=== PATIENT | female | born 1945 | race Caucasian/White ===

== ENCOUNTER 2017-01-17 16:35 | Emergency (ER) | payer MEDICARE ==
--- NOTE | 2017-01-17 18:02 | ERPHSYRPT ---
- History of Present Illness Time Seen by Provider: 01/17/17 17:52 Source: patient Exam Limitations: no limitations Patient Subjective Stated Complaint: pt here for pain to right leg from groin to calf since sunday, pain is more intense at time. no injury noted to leg Triage Nursing Assessment: pt alert, resp easy. skin w/d, moves all ext well, has bruise to right mosqueda area, not redness for swelling noted Physician History: This is a 71-year-old white female she arrives with complaint of a pain in her right thigh which radiates down to her right lateral calf symptoms beginning Sunday 3 days ago which lasted about an hour but now has recurred and patient has been having pain in the right thigh and right leg sometimes severe since 11: 00 today. Patient denies any injury she states she feels sore in the muscle itself along the medial right thigh and along the right medial calf. Past medical history on this patient includes hypothyroidism high blood pressure and Lyme disease past surgical history includes hernia hysterectomy and Social history patient denies tobacco alcohol or illicit drug use Method of Injury: unknown (patient denies injury) Occurred: other (patient's Sunday with symptoms which recurred today) Severity of Pain-Max: moderate Severity of Pain-Current: mild Lower Extremities Pain: leg: right, thigh: right Modifying Factors: Improves With: nothing Associated Symptoms: other (pain in right medial thigh and leg worse with movement) Allergies/Adverse Reactions: cephalexin monohydrate [From Keflex] Allergy (Verified 01/17/17 17:29) Hives erythromycin base [Erythromycin Base] Allergy (Verified 01/17/17 17:29) Hives Home Medications: Levothyroxine Sodium 50 Mcg [Synthroid 50 Mcg] 25 mcg DAILY 03/13/13 [ History] Lisinopril [Zestril] 10 mg BID 01/17/17 [History] Hx Tetanus, Diphtheria Vaccination/Date Given: No Hx Influenza Vaccination/Date Given: No Hx Pneumococcal Vaccination/Date Given: Yes - Review of Systems Constitutional: No Fever, No Chills Eyes: No Symptoms Ears, Nose, & Throat: No Symptoms Respiratory: No Cough, No Dyspnea Cardiac: No Chest Pain, No Edema, No Syncope Abdominal/Gastrointestinal: No Abdominal Pain, No Nausea, No Vomiting, No Diarrhea Genitourinary Symptoms: No Dysuria Musculoskeletal: Other (Pain right medial leg and thigh) Skin: No Rash Neurological: No Dizziness, No Focal Weakness, No Sensory Changes Psychological: No Symptoms Endocrine: No Symptoms All Other Systems: Reviewed and Negative - Past Medical History Pertinent Past Medical History: Yes Cardiac History: Hypertension Endocrine Medical History: Hypothyroidism Other Medical History: LYMES DISEASE 2005 - Past Surgical History Past Surgical History: Yes Gastrointestinal: Hernia Repair Female Surgical History: Section, Hysterectomy - Social History Smoking Status: Never smoker Exposure to second hand smoke: No Drug Use: none Patient Lives Alone: No - Female History Hx Last Menstrual Period: post Hx Now: Yes - Nursing Vital Signs Nursing Vital Signs: Initial Vital Signs Temperature 98.0 F Temperature Source Oral Pulse Rate 73 Respiratory Rate 16 Blood Pressure [Right Arm] 141/86 Pain Intensity 8 - Physical Exam General Appearance: mild distress Eyes, Ears, Nose, Throat Exam: moist mucous membranes Neck Exam: non-tender, supple Cardiovascular/Respiratory Exam: chest non-tender, normal breath sounds, regular rate/rhythm, no respiratory distress Gastrointestinal/Abdominal Exam: non-tender, guarding Back Exam: normal inspection, No vertebral tenderness Hips Exam: bilateral: non-tender, normal inspection, normal range of motion, no evidence of injury (Will order) Legs Exam: right leg: other (tender with palpation right thigh and right medial leg), left leg: non-tender, normal inspection, bilateral leg: normal range of motion, no evidence of injury Knees Exam: bilateral knee: non-tender, normal inspection, normal range of motion, no evidence of injury Ankle Exam: bilateral ankle: non-tender, normal inspection, normal range of motion, no evidence of injury Foot Exam: bilateral foot: non-tender, normal inspection, normal range of motion , no evidence of injury DTR - Lower Extremities Exam: ankle (R): 2+, ankle (L): 2+ Neuro/Tendon Exam: normal sensation, normal motor functions Mental Status Exam: alert, oriented x 3, cooperative Skin Exam: normal color, warm, dry SpO2 Interpretation: normal (97%) SpO2: 97 Oxygen Delivery: Room Air - Course Nursing assessment & vital signs reviewed: Yes - Radiology Ultrasound Exam Venous Lower Extremity Ultrasound: Other (venous Doppler right lower extremity per police crime scene technician: no evidence of venous thrombosisrombosis) Ordered Tests: Active Orders 24 hr Category Date Time Status EKG-ER Only STAT Care 01/17/17 17:56 Active VENOUS UNILAT/LIMITED EXTREMIT [US] Stat Exams 01/17/17 17:57 Ordered CBC W DIFF Stat Lab 01/17/17 18:28 Completed CMP Stat Lab 01/17/17 18:28 Completed D-DIMER QUANTITATION Stat Lab 01/17/17 18:28 Completed Lab/Rad Data: Laboratory Result Diagrams 01/17/17 18:28 01/17/17 18:28 Laboratory Results 01/17/17 01/17/17 01/17/17 Range/Units 18:28 18:28 18:28 WBC 6.7 (4.0-10.5) K/mm3 RBC 3.70 L (4.1-5.4) M/mm3 Hgb 11.8 L (12.0-16.0) gm/dl Hct 35.4 (35-47) % MCV 95.7 (78-100) fl MCH 31.8 (26-32) pg MCHC 33.3 (32-36) g/dl RDW 13.0 (11.5-14.0) % Plt Count 303 (150-450) K/mm3 MPV 9.2 (6-9.5) fl Gran % 47.3 (36.0-66.0) % Lymphocytes % 37.1 (24.0-44.0) % Monocytes % 9.3 (0.0-12.0) % Eosinophils % 5.7 H (0.00-5.0) % Basophils % 0.6 (0.0-0.4) % Basophils # 0.04 (0-0.4) D-Dimer 352.56 (0.00-500.00) ng/mL Sodium 141 (136-145) mEq/L Potassium 4.0 (3.5-5.1) mEq/L Chloride 105 (98-107) mEq/L Carbon Dioxide 27.5 (21-32) mEq/L Anion Gap 12.8 (5-15) MEQ/L BUN 16 (9-20) mg/dL Creatinine 0.87 (0.55-1.30) mg/dl Estimated GFR > 60 ML/MIN Glucose 105 (70-110) MG/DL Calcium 9.0 (8.5-10.1) mg/dL Total Bilirubin 0.20 (0.2-1.0) mg/dL AST 17 (15-37) U/L ALT 14 (12-78) U/L Alkaline Phosphatase 79 (46-116) U/L Serum Total Protein 6.9 (6.4-8.2) gm/dL Albumin 3.3 L (3.4-5.0) g/dL - Progress Progress: improved Progress Note: 01/17/17 19:13 Patient's CBC CMP d-dimer all negative. Patient's venous Doppler right lower extremity negative for DVT. Patient feeling better patient does not want pain medications to go home she states she will take Tylenol and possibly Advil. And follow-up with Dr. Atwood. 01/17/17 19:14 Patient was offered pain medication in the emergency room she did not want any. - Departure Time of Disposition: 19:15 Departure Disposition: Home Clinical Impression: Right leg pain, Right thigh pain, Musculoskeletal strain Condition: Fair Critical Care Time: No Additional Instructions: Return home. Follow-up with your family doctor. Tylenol every 4 hours as needed for pain. Or Advil every 6 hours as needed for pain. Return for acute distress or for severe symptoms.
[2017-01-17 18:10] VITALS: BP 141/86; PULSE 73
[2017-01-17 18:28] LABS: BASOPHIL % 0.6 % (0.0-0.4); Eosinophil % 5.7 % (0.00-5.0); Granulocytes % 47.3 % (36.0-66.0); Lymphocytes % 37.1 % (24.0-44.0); Mean Cell Volume 95.7 fl (78-100); Mean Platelet Volume 9.2 fl (6-9.5); Monocytes % 9.3 % (0.0-12.0); Platelet Count 303 K/mm3 (150-450); White Blood Count 6.7 K/mm3 (4.0-10.5)
[2017-01-17 18:29] LABS: Mean Corpuscular Hemoglobin 31.8 pg (26-32)
[2017-01-17 18:51] LABS: ALBUMIN 3.3 g/dL (3.4-5.0); ALKALINE PHOSPHATASE 79 U/L (46-116); ANION GAP 12.8 MEQ/L (5-15); BLOOD UREA NITROGEN 16 mg/dL (9-20); CHLORIDE 105 mEq/L (98-107); Carbon Dioxide 27.5 mEq/L (21-32); Glucose 105 MG/DL (70-110); SGOT/AST 17 U/L (15-37); SGPT/ALT 14 U/L (12-78); SODIUM 141 mEq/L (136-145); Total Protein 6.9 gm/dL (6.4-8.2)
[2017-01-17 19:16] VITALS: O2SAT 97
--- NOTE | 2017-01-17 22:59 | XRAY ---
Exam: Right lower extremity duplex Doppler venous ultrasound exam from 01/17/2017. Comparison: None. Indication: Pain within right thigh and calf. Findings: Bailing Machine Operator sections of the right common femoral vein, proximal, mid, and distal superficial femoral vein, popliteal vein, and distal posterior tibial veins reveal normal Doppler signal, color flow, and transducer compression. In addition, normal color flow and Doppler signal is seen within the proximal greater saphenous vein and profundofemoral vein. Incidentally, a posterior popliteal cyst is seen measuring 2.6 cm in length, 2.2 cm in AP depth, and 2.6 cm in width. This may be the etiology of the patient's pain. Impression: 1. No findings of deep venous thrombosis are seen within the right lower extremity. No evidence of superficial venous thrombosis is seen within the greater saphenous vein in the proximal right thigh. 2. A posterior popliteal cyst is seen, as discussed above.
== END 2017-01-17 19:35 | disposition home or self-care (01) ==
LOC: ED 16:35
DX: M79.661 Pain in right lower leg (principal); M79.651 Pain in right thigh; T14.8 Other injury of unspecified body region; E03.9 Hypothyroidism, unspecified; I10 Essential (primary) hypertension
CPT/HCPCS: 36415; 80053; 85025; 85379; 93971; 99281; 99284

== ENCOUNTER 2021-02-03 05:20 | Emergency (ER) | payer MEDICARE ==
[2021-02-03] MEDS ORDERED: Pepcid 20 MG VIAL IV ONE ×2 (05:49→06:38)
[2021-02-03] MEDS ORDERED: BENADRYL 50 MG/ML IV ONE (05:49)
[2021-02-03] MEDS ORDERED: solu-MEDROL IV ONE (05:49)
[2021-02-03 06:29] VITALS: O2SAT 98
[2021-02-03] MEDS ORDERED: BENADRYL 50 MG/ML ONE (06:37)
[2021-02-03] MEDS ORDERED: solu-MEDROL ONE (06:39)
--- NOTE | 2021-02-03 06:50 | ERPHSYRPT ---
- History of Present Illness Source: patient Exam Limitations: no limitations Patient Subjective Stated Complaint: . Triage Nursing Assessment: . Timing/Duration: today Severity: moderate Modifying Factors: Improves With: nothing Associated Symptoms: other (generalized warmth, lip swelling) Hx Tetanus, Diphtheria Vaccination/Date Given: Yes Hx Influenza Vaccination/Date Given: No Hx Pneumococcal Vaccination/Date Given: Yes (unknown) Immunizations Up to Date: Yes - History of Present Illness Time Seen by Provider: 02/03/21 05:45 Physician History: Patient is a 75-year-old female presents to emergency department for evaluation of allergic reaction. Patient states she has a history of multiple antibiotic allergies. Patient states that she was recently started on Augmentin for a cat scratch to her right lower leg. At approximately 430 this morning patient awoke feeling hot sweaty and shaky. Patient states her heart was racing and she felt her lip swelling. Patient became concerned and presented to our ED. Upon arrival patient was slightly hypertensive. She was anxious. No chest pain. Mi ld nausea. Patient symptoms are constant. No abdominal cramping. No throat fullness. No intraoral lesions. No pruritic rash. Patient voices no other complaints or concerns. (BLANE MENA) Allergies/Adverse Reactions: amoxicillin [From Augmentin] Allergy (Intermediate, Verified 02/03/21 05:50) Swelling of Tongue and Lips clavulanic acid [From Augmentin] Allergy (Intermediate, Verified 02/03/21 05:50) Swelling of Tongue and Lips cephalexin monohydrate [From Keflex] Allergy (Verified 01/17/17 17:29) Hives erythromycin base [Erythromycin Base] Allergy (Verified 01/17/17 17:29) Hives Home Medications: Levothyroxine Sodium 50 Mcg [Synthroid 50 Mcg] 25 mcg PO DAILY 03/13/13 [History] Cephalexin Monohydrate [Cephalexin] 500 mg PO TID 02/03/21 [History] Losartan Potassium 50 mg [Cozaar 50 MG] 50 mg PO BID 02/03/21 [History] Smz/Tmp Ds Tablet [Bactrim Ds Tablet] 800 mg PO BID 02/03/21 [History] Travel Risk - International Travel Have you traveled outside of the country in past 3 weeks: No - Coronavirus Screening Are you exhibiting any of the following symptoms?: No Close contact with a COVID-19 positive Pt in past 14-21 Days: No - Vaccine Status Have you recieved a Covid-19 vaccination: No - Review of Systems Constitutional: No Symptoms, No Fever, No Chills Eyes: No Symptoms Ears, Nose, & Throat: No Symptoms Respiratory: No Symptoms, No Cough, No Dyspnea Cardiac: No Symptoms, No Chest Pain, No Edema, No Syncope Abdominal/Gastrointestinal: No Symptoms, No Abdominal Pain, No Nausea, No Vomiting, No Diarrhea Genitourinary Symptoms: No Symptoms, No Dysuria Musculoskeletal: No Symptoms, No Back Pain, No Neck Pain Skin: No Symptoms, No Rash Neurological: No Symptoms, No Dizziness, No Focal Weakness, No Sensory Changes Psychological: No Symptoms Endocrine: No Symptoms Hematologic/Lymphatic: No Symptoms All Other Systems: Reviewed and Negative - Past Medical History Pertinent Past Medical History: Yes Cardiac History: Hypertension Endocrine Medical History: Hypothyroidism Musculoskeletal History: Arthritis Other Medical History: LYME DISEASE - Past Surgical History Past Surgical History: Yes Gastrointestinal: Hernia Repair Female Surgical History: Section, Hysterectomy Other Surgical History: July 2019- bladder repair - Social History Smoking Status: Never smoker Exposure to second hand smoke: No Drug Use: none Patient Lives Alone: No - Physical Exam General Appearance: no apparent distress, alert, other (lip swelling ) Eye Exam: PERRL/EOMI, eyes nml inspection Ears, Nose, Throat Exam: normal ENT inspection, TMs normal, pharynx normal, moist mucous membranes Neck Exam: normal inspection, non-tender, supple, full range of motion Respiratory Exam: normal breath sounds, lungs clear, No respiratory distress Cardiovascular Exam: regular rate/rhythm, normal heart sounds, normal peripheral pulses Gastrointestinal/Abdomen Exam: soft, normal bowel sounds, No tenderness, No mass Back Exam: normal inspection, normal range of motion, No CVA tenderness, No vertebral tenderness Extremity Exam: normal inspection, normal range of motion, pelvis stable Neurologic Exam: alert, oriented x 3, cooperative, normal mood/affect, nml cerebellar function, nml station & gait, sensation nml, No motor deficits Skin Exam: normal color, warm, dry, No rash Lymphatic Exam: No adenopathy SpO2 Interpretation: normal SpO2: 98 O2 Delivery: Room Air - Nursing Vital Signs Nursing Vital Signs: Initial Vital Signs Temperature 96.9 F 02/03/21 05:38 Pulse Rate 86 07/08/21 05:38 Respiratory Rate 18 02/03/21 05:38 Blood Pressure 199/93 02/03/21 05:38 O2 Sat by Pulse Oximetry 99 02/03/21 05:38 Pain Scale Pain Intensity 0 - Course Nursing assessment & vital signs reviewed: Yes EKG Interpreted by Me: RATE (70), Sinus Rhythm, NORMAL AXIS, NORMAL INTERVALS Ordered Tests: Active Orders 24 hr Category Date Time Status Gate Agent STAT Care 02/03/21 07:12 Active EKG-ER Only STAT Care 02/03/21 07:15 Active IV Insertion STAT Care 02/03/21 05:49 Active CBC W DIFF Stat Lab 02/03/21 06:30 Completed CMP Stat Lab 02/03/21 06:30 Completed TROPONIN Q3H Lab 02/03/21 06:30 Completed TROPONIN Q3H Lab 02/03/21 10:15 Ordered TROPONIN Q3H Lab 02/03/21 13:15 Ordered TROPONIN Q3H Lab 02/03/21 16:15 Ordered TROPONIN Q3H Lab 02/03/21 19:15 Ordered UA W/RFX UR CULTURE Stat Lab 02/03/21 06:30 Completed Medication Summary Discontinued Medications Generic Name Dose Route Start Last Admin Trade Name Freq PRN Reason Stop Dose Admin Diphenhydramine HCl 25 mg 02/03/21 05:49 02/03/21 06:57 Benadryl 50 Mg/Ml IV 02/03/21 05:50 25 mg STAT ONE Administration Diphenhydramine HCl Confirm 02/03/21 06:37 Benadryl 50 Mg/Ml Administered 02/03/21 06:38 Dose 50 mg .ROUTE .STK-MED ONE Famotidine 20 mg 02/03/21 05:49 02/03/21 06:57 Pepcid 20 Mg Vial IV 02/03/21 05:50 20 mg STAT ONE Administration Famotidine Confirm 02/03/21 06:38 Pepcid 20 Mg Vial Administered 02/03/21 06:39 Dose 20 mg IV .STK-MED ONE Losartan Potassium 50 mg 02/03/21 07:22 02/03/21 07:33 Cozaar 50 Mg PO 02/03/21 07:23 50 mg ONCE STA Administration Methylprednisolone Sodium Succinate 125 mg 02/03/21 05:49 02/03/21 06:57 Solu-Medrol 125 Mg IV 02/03/21 05:50 125 mg STAT ONE Administration Methylprednisolone Sodium Succinate Confirm 02/03/21 06:39 Solu-Medrol 125 Mg Administered 02/03/21 06:40 Dose 125 mg .ROUTE .STK-MED ONE Lab/Rad Data: Laboratory Result Diagrams 02/03/21 06:30 02/03/21 06:30 Laboratory Results 02/03/21 02/03/21 02/03/21 Range/Units 06:30 06:30 06:30 WBC 6.7 (4.0-10.5) K/mm3 RBC 3.96 L (4.1-5.4) M/mm3 Hgb 12.1 (12.0-16.0) gm/dl Hct 36.8 (35-47) % MCV 92.9 (78-100) fl MCH 30.6 (26-32) pg MCHC 32.9 (32-36) g/dl RDW 13.4 (11.5-14.0) % Plt Count 347 (150-450) K/mm3 MPV 9.2 (7.5-11.0) fl Gran % 59.3 (36.0-66.0) % Eos # (Auto) 0.18 (0-0.5) Absolute Lymphs (auto) 2.01 (1.0-4.6) Absolute Monos (auto) 0.48 (0.0-1.3) Lymphocytes % 30.2 (24.0-44.0) % Monocytes % 7.2 (0.0-12.0) % Eosinophils % 2.7 (0.00-5.0) % Basophils % 0.6 (0.0-0.4) % Absolute Granulocytes 3.95 (1.4-6.9) Basophils # 0.04 (0-0.4) Sodium 134 L (137-145) mmol/L Potassium 4.6 (3.5-5.1) mmol/L Chloride 100 (98-107) mmol/L Carbon Dioxide 22 (22-30) mmol/L Anion Gap 15.8 H (5-15) MEQ/L BUN 21 H (7-17) mg/dL Creatinine 0.90 (0.52-1.04) mg/dL Estimated GFR > 60.0 ML/MIN Glucose 107 H (74-106) mg/dL Calcium 9.1 (8.4-10.2) mg/dL Total Bilirubin 0.20 (0.2-1.3) mg/dL AST 29 (14-36) U/L ALT 17 (0-35) U/L Alkaline Phosphatase 92 (38-126) U/L Troponin I < 0.012 (0.000-0.034) ng/mL Serum Total Protein 7.3 (6.3-8.2) g/dL Albumin 4.4 (3.5-5.0) g/dL Urine Color (YELLOW) Urine Appearance (CLEAR) Urine pH (5-6) Ur Specific Sawyer (1.005-1.025) Urine Protein (Negative) Urine Ketones (NEGATIVE) Urine Blood (0-5) Cesar/ul Urine Nitrite (NEGATIVE) Urine Bilirubin (NEGATIVE) Urine Urobilinogen (0-1) mg/dL Ur Leukocyte Esterase (NEGATIVE) Urine WBC (Auto) (0-5) /HPF Urine RBC (Auto) (0-2) /HPF U Epithel Cells (Auto) (FEW) /HPF Urine Bacteria (Auto) (NEGATIVE) /HPF Urine Culture Reflexed (NO) Urine Glucose (NEGATIVE) mg/dL 02/03/21 Range/Units 06:30 WBC (4.0-10.5) K/mm3 RBC (4.1-5.4) M/mm3 Hgb (12.0-16.0) gm/dl Hct (35-47) % MCV (78-100) fl MCH (26-32) pg MCHC (32-36) g/dl RDW (11.5-14.0) % Plt Count (150-450) K/mm3 MPV (7.5-11.0) fl Gran % (36.0-66.0) % Eos # (Auto) (0-0.5) Absolute Lymphs (auto) (1.0-4.6) Absolute Monos (auto) (0.0-1.3) Lymphocytes % (24.0-44.0) % Monocytes % (0.0-12.0) % Eosinophils % (0.00-5.0) % Basophils % (0.0-0.4) % Absolute Granulocytes (1.4-6.9) Basophils # (0-0.4) Sodium (137-145) mmol/L Potassium (3.5-5.1) mmol/L Chloride (98-107) mmol/L Carbon Dioxide (22-30) mmol/L Anion Gap (5-15) MEQ/L BUN (7-17) mg/dL Creatinine (0.52-1.04) mg/dL Estimated GFR ML/MIN Glucose (74-106) mg/dL Calcium (8.4-10.2) mg/dL Total Bilirubin (0.2-1.3) mg/dL AST (14-36) U/L ALT (0-35) U/L Alkaline Phosphatase (38-126) U/L Troponin I (0.000-0.034) ng/mL Serum Total Protein (6.3-8.2) g/dL Albumin (3.5-5.0) g/dL Urine Color STRAW (YELLOW) Urine Appearance CLEAR (CLEAR) Urine pH 6.0 (5-6) Ur Specific Sawyer 1.006 (1.005-1.025) Urine Protein NEGATIVE (Negative) Urine Ketones NEGATIVE (NEGATIVE) Urine Blood NEGATIVE (0-5) Cesar/ul Urine Nitrite NEGATIVE (NEGATIVE) Urine Bilirubin NEGATIVE (NEGATIVE) Urine Urobilinogen NEGATIVE (0-1) mg/dL Ur Leukocyte Esterase NEGATIVE (NEGATIVE) Urine WBC (Auto) NONE (0-5) /HPF Urine RBC (Auto) NONE (0-2) /HPF U Epithel Cells (Auto) NONE (FEW) /HPF Urine Bacteria (Auto) NONE (NEGATIVE) /HPF Urine Culture Reflexed NO (NO) Urine Glucose NEGATIVE (NEGATIVE) mg/dL - Progress Progress: improved Counseled pt/family regarding: lab results, diagnosis, need for follow-up - Progress Progress Note: Patient reassessed. Symptoms improved. Patient blood pressure remains somewhat elevated. Systolic blood pressure is 180. Patient is due for her losartan this morning. Losartan 50 mg p.o. x1 will be administered to patient for blood pressure control at this time. Because of her elevated blood pressure and EKG was ordered. EKG is normal sinus rhythm. UA negative for UTI. Labs including troponin were also ordered. Results pending. We will observe patient in the ED for a longer period of time. Patient endorsed to final disposition. 02/03/21 07:23 (BLANE MENA) Patient is checked out to me at shift change from Dr. Mena with pending chemistries/troponins and recheck of blood pressure off. She was given antihypertensive while in the ER. Recheck blood pressure is 160/80. Patient denies any chest pain palpitations or shortness of breath. Denies any headache or visual disturbance. No abdominal pain nausea. Has negative troponins. As per Dr. Mena recommendation patient would be discharged after first troponin and will be given EpiPen/Pepcid/Benadryl/prednisone to go home. She is advised to monitor her blood pressure regularly, keep a log and follow-up with primary care. Discussed signs symptoms of anaphylactic reaction needing to use EpiPen and returning to ER which she seems understanding. Stable for discharge. 02/03/21 08:17 (KATHERINE MEANS) - Departure Departure Disposition: Home Critical Care Time: No - Departure Clinical Impression: Allergic reaction Qualifiers: Encounter type: initial encounter Qualified Code(s): T78.40XA - Allergy, unspecified, initial encounter Hypertension Qualifiers: Hypertension type: unspecified Qualified Code(s): I10 - Essential (primary) hypertension Condition: Stable Referrals: PATRICA AGUILAR MD [Primary Care Provider] - (1-2 days for reevaluation) Instructions: Adverse Drug Reactions, Adult (DC), Anaphylaxis (DC) Additional Instructions: Monitor your blood pressure regularly, keep a log and follow-up with PCP. Use EpiPen as needed for anaphylactic reaction. Return to ER for any worsening of breathing, throat closing sensation, generalized weakness fatigue intractable headache, uncontrolled hypertension etc. Prescriptions: Diphenhydramine HCl 25 mg [Benadryl 25 mg Capsule] 25 mg PO Q4H PRN PRN #20 capsule PRN Reason: Allergies Prednisone 20 mg [Deltasone 20 mg] 60 mg PO DAILY 5 Days #15 tablet Epinephrine [Epipen] 0.3 mg IM DIRECTIONS UNKNOWN 1 Days #0.3 ml Famotidine 20 mg [Pepcid 20 MG] 20 mg PO BID #10 tablet Albuterol 8 gm Mdi Hfa [Ventolin Hfa MDI] 8 gm IH Q4H #1 [email or web address]
[2021-02-03 07:04] LABS: Appearance CLEAR (CLEAR); Bilirubin NEGATIVE (NEGATIVE); Blood NEGATIVE Ery/ul (0-5); Glucose NEGATIVE (NEGATIVE); Ketones NEGATIVE (NEGATIVE); Leukocyte Esterase NEGATIVE (NEGATIVE); Nitrite NEGATIVE (NEGATIVE); Protein,Urine Dip NEGATIVE (Negative); Specific Gravity 1.006 (1.005-1.025); Urobilinogen NEGATIVE mg/dL (0-1)
[2021-02-03 07:17] LABS: Absolute Neutrophil Ct (ANC) 3.95 (1.4-6.9); BASOPHIL % 0.6 % (0.0-0.4); Basophil (Absolute #) 0.04 (0-0.4); Eosinophil % 2.7 % (0.00-5.0); Eosinophil (Absolute #) 0.18 (0-0.5); Hematocrit 36.8 % (35-47); Hemoglobin 12.1 gm/dl (12.0-16.0); Lymphocyte (Absolute #) 2.01 (1.0-4.6); Lymphocytes % 30.2 % (24.0-44.0); Mean Cell Volume 92.9 fl (78-100); Mean Corpuscular Hemoglobin 30.6 pg (26-32); Mean Corpuscular Hgb Concent. 32.9 g/dl (32-36); Mean Platelet Volume 9.2 fl (7.5-11.0); Monocyte (Absolute #) 0.48 (0.0-1.3); Monocytes % 7.2 % (0.0-12.0); Neutrophil % 59.3 % (36.0-66.0); Platelet Count 347 K/mm3 (150-450); Red Blood Count 3.96 M/mm3 (4.1-5.4); Red Cell Distribution Width 13.4 % (11.5-14.0); White Blood Count 6.7 K/mm3 (4.0-10.5)
[2021-02-03] MEDS ORDERED: Cozaar 50 MG PO STA (07:22)
[2021-02-03 07:37] VITALS: BP 182/90; PULSE 76
[2021-02-03 07:41] LABS: ALBUMIN 4.4 g/dL (3.5-5.0); ALKALINE PHOSPHATASE 92 U/L (38-126); ANION GAP 15.8 MEQ/L (5-15); BLOOD UREA NITROGEN 21 mg/dL (7-17); CHLORIDE 100 mmol/L (98-107); Calcium 9.1 mg/dL (8.4-10.2); Carbon Dioxide 22 mmol/L (22-30); EST GLOMERULAR FILTRATION RATE > 60.0 ML/MIN; Glucose 107 mg/dL (74-106); Potassium 4.6 mmol/L (3.5-5.1); SGOT/AST 29 U/L (14-36); SGPT/ALT 17 U/L (0-35); SODIUM 134 mmol/L (137-145); Total Protein 7.3 g/dL (6.3-8.2)
== END 2021-02-03 08:47 | disposition home or self-care (01) ==
LOC: ED 05:20
DX: T78.40XA Allergy, unspecified, initial encounter (principal); I10 Essential (primary) hypertension; E03.9 Hypothyroidism, unspecified; Z79.899 Other long term (current) drug therapy
CPT/HCPCS: 36000; 36415; 80053; 81001; 84484; 85025; 93005; 93041; 96374; 96375; 99284; J1200; J2930; A9270-GY

== ENCOUNTER 2021-02-07 03:26 | Emergency (ER) | payer MEDICARE ==
[2021-02-07] MEDS ORDERED: BENADRYL 50 MG/ML IV ONE (03:54)
[2021-02-07] MEDS ORDERED: DUONEB 0.5-3 MG/3 ml Neb IH ONE ×2 (03:54→04:02)
[2021-02-07] MEDS ORDERED: solu-MEDROL 125 MG, Sterile H2O 10 ml 2 ML IV ONE ×2 (03:54)
[2021-02-07] MEDS ORDERED: Pepcid 20 MG VIAL IV ONE ×2 (03:54→04:15)
[2021-02-07 04:13] VITALS: O2SAT 98
[2021-02-07] MEDS ORDERED: BENADRYL 50 MG/ML ONE (04:14)
[2021-02-07] MEDS ORDERED: solu-MEDROL ONE (04:15)
[2021-02-07] MEDS ORDERED: Sterile H2O 10 ml IJ ONE (04:15)
--- NOTE | 2021-02-07 06:05 | ERPHSYRPT ---
- History of Present Illness Time Seen by Provider: 02/07/21 05:54 Source: patient Exam Limitations: no limitations Patient Subjective Stated Complaint: "I'm having swelling in my tongue." Triage Nursing Assessment: patient reported having an allergic reaction to her moxifloxacin/ She described a swelling in her throat and difficulty swallowing. Oral mucosa pink and moist with slight edema. Trachea midline without stridor. Lungs vesicular without adventitious sounds. skin without rashes or lesions. Physician History: 75 years old female with history of allergic reactions to multiple antibiotics lately presented in the ER with tongue swelling and throat closing sensation waking her up from sleep around 2 AM today. Patient reports having some difficulty swallowing. No difficulty breathing yet. Does report having similar symptoms last week with a different antibiotics. Patient has been switched to multiple antibiotics for cat scratch on the right leg. Since she woke up around 2 AM tongue swelling is gradually improving. Timing/Duration: hour(s) (1), sudden, improved Severity: moderate Modifying Factors: Improves With: nothing Associated Symptoms: No shortness of breath Allergies/Adverse Reactions: amoxicillin [From Augmentin] Allergy (Intermediate, Verified 02/03/21 05:50) Swelling of Tongue and Lips clavulanic acid [From Augmentin] Allergy (Intermediate, Verified 02/03/21 05:50) Swelling of Tongue and Lips moxifloxacin Allergy (Intermediate, Verified 02/07/21 03:33) tongue swelling and dysphagia cephalexin monohydrate [From Keflex] Allergy (Verified 01/17/17 17:29) Hives erythromycin base [Erythromycin Base] Allergy (Verified 01/17/17 17:29) Hives minocycline Adverse Reaction (Intermediate, Verified 02/07/21 03:33) dizziness Home Medications: Levothyroxine Sodium 50 Mcg [Synthroid 50 Mcg] 25 mcg PO DAILY 03/13/13 [History] Losartan Potassium 50 mg [Cozaar 50 MG] 50 mg PO BID 02/03/21 [History] Hx Tetanus, Diphtheria Vaccination/Date Given: Yes Hx Influenza Vaccination/Date Given: No Hx Pneumococcal Vaccination/Date Given: Yes (unknown) Travel Risk - International Travel Have you traveled outside of the country in past 3 weeks: No - Coronavirus Screening Are you exhibiting any of the following symptoms?: No Close contact with a COVID-19 positive Pt in past 14-21 Days: No - Vaccine Status Have you recieved a Covid-19 vaccination: No - Review of Systems Constitutional: No Symptoms Eyes: No Symptoms Ears, Nose, & Throat: Mouth Swelling, Throat Swelling Respiratory: No Symptoms Cardiac: No Symptoms Abdominal/Gastrointestinal: No Symptoms, Appetite Changes Musculoskeletal: No Symptoms Skin: Skin Lesions Neurological: No Symptoms Psychological: Anxiety Endocrine: No Symptoms Hematologic/Lymphatic: No Symptoms Immunological/Allergic: No Symptoms - Past Medical History Pertinent Past Medical History: Yes Cardiac History: Hypertension Endocrine Medical History: Hypothyroidism Musculoskeletal History: Arthritis Other Medical History: LYME DISEASE - Past Surgical History Past Surgical History: Yes Gastrointestinal: Hernia Repair Female Surgical History: Section, Hysterectomy Other Surgical History: July 2019- bladder repair - Social History Smoking Status: Never smoker Exposure to second hand smoke: No Drug Use: none Patient Lives Alone: No - Female History Hx Now: No - Nursing Vital Signs Nursing Vital Signs: Initial Vital Signs Temperature 97.4 F 02/07/21 03:26 Pulse Rate 80 02/07/21 03:26 Respiratory Rate 18 02/07/21 03:26 Blood Pressure 202/97 02/07/21 03:26 O2 Sat by Pulse Oximetry 99 02/07/21 03:26 Pain Scale Pain Intensity 0 - Physical Exam General Appearance: no apparent distress, alert Eye Exam: PERRL/EOMI, eyes nml inspection Ears, Nose, Throat Exam: moist mucous membranes, pharyngeal erythema, other (Mild swelling of tongue. 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, normal mood/affect Skin Exam: normal color, rash (Right lower leg.) SpO2 Interpretation: normal SpO2: 98 O2 Delivery: Room Air Ordered Tests: Active Orders 24 hr Category Date Time Status Respiratory Therapy Assessment DAILY RT 02/07/21 04:07 Active Medication Summary Discontinued Medications Generic Name Dose Route Start Last Admin Trade Name Freq PRN Reason Stop Dose Admin Albuterol/Ipratropium 3 ml 02/07/21 03:54 02/07/21 04:04 Duoneb 0.5-3 Mg/3 Ml Neb IH 07/12/21 03:55 3 ml STAT ONE Administration Albuterol/Ipratropium Confirm 02/07/21 04:02 Duoneb 0.5-3 Mg/3 Ml Neb Administered 02/07/21 04:03 Dose 3 ml IH .STK-MED ONE Methylprednisolone Sodium 0 mg 02/07/21 03:54 02/07/21 04:19 Succinate 125 mg/ Sterile IV 02/07/21 03:55 125 mg Water 2 ml STAT ONE Administration Diphenhydramine HCl 25 mg 02/07/21 03:54 02/07/21 04:17 Benadryl 50 Mg/Ml IV 02/07/21 03:55 25 mg STAT ONE Administration Diphenhydramine HCl Confirm 02/07/21 04:14 Benadryl 50 Mg/Ml Administered 02/07/21 04:15 Dose 50 mg .ROUTE .STK-MED ONE Famotidine 20 mg 02/07/21 03:54 02/07/21 04:16 Pepcid 20 Mg Vial IV 02/07/21 03:55 20 mg STAT ONE Administration Famotidine Confirm 02/07/21 04:15 Pepcid 20 Mg Vial Administered 02/07/21 04:16 Dose 20 mg IV .STK-MED ONE Methylprednisolone Sodium Succinate Confirm 02/07/21 04:15 Solu-Medrol Administered 02/07/21 04:16 Dose 125 mg .ROUTE .STK-MED ONE Sterile Water Confirm 02/07/21 04:15 Sterile H2o 10 Ml Administered 02/07/21 04:16 Dose 10 ml IJ .STK-MED ONE - Progress Progress: improved, re-examined Progress Note: 02/07/21 06:03 She is given Solu-Medrol, Benadryl, Pepcid and neb treatment, observed for almost 3 hours and her symptoms are almost completely resolved. No difficulty breathing. Patient is being discharged with above medications to take at home and would not start her on any antibiotics for now. Discussed signs symptoms of worsening needing return to ER which she seems understanding. Counseled pt/family regarding: diagnosis, need for follow-up - Departure Departure Disposition: Home Clinical Impression: Allergic reaction Qualifiers: Encounter type: initial encounter Qualified Code(s): T78.40XA - Allergy, unspecified, initial encounter Condition: Stable Critical Care Time: No Referrals: PATRICA AGUILAR MD [Primary Care Provider] - (1-2 days for reevaluation) Instructions: Adverse Drug Reactions, Adult (DC) Additional Instructions: Follow-up with your primary care physician for reevaluation in 1 to 2 days. Use EpiPen as needed. Return to ER if again have throat closing sensation, tongue swelling, difficulty breathing etc. Prescriptions: Diphenhydramine HCl 25 mg [Benadryl 25 mg Capsule] 25 mg PO Q4H PRN PRN #20 capsule PRN Reason: Allergies Prednisone 20 mg [Deltasone 20 mg] 60 mg PO DAILY 5 Days #15 tablet Famotidine 20 mg [Pepcid 20 MG] 20 mg PO BID #10 tablet
[2021-02-07 06:48] VITALS: BP 160/90; PULSE 88
== END 2021-02-07 06:40 | disposition home or self-care (01) ==
LOC: ED 03:26
DX: T78.40XA Allergy, unspecified, initial encounter (principal); Z79.899 Other long term (current) drug therapy; I10 Essential (primary) hypertension; E03.9 Hypothyroidism, unspecified
CPT/HCPCS: 94640; 96374; 96375; 99284; J1200; J2930; A9270-GY

== ENCOUNTER 2023-12-05 12:01 | Observation (INO) | payer MEDICARE ==
--- NOTE | 2023-12-05 12:17 | ERPHSYRPT ---
- History of Present Illness Time Seen by Provider: 12/05/23 12:07 Source: patient Exam Limitations: no limitations Physician History: Pt states she tripped over her feet in her kitchen and fell 7 days ago hitting the back of her head. Pt went to [facility] ER in [place], [place] and had multiple x-rays done and a CT-head 5 days ago. Pt states she vomited once 5 days ago and mul tiple times in the past 4 hours without blood. Pt also states she has had diarrhea today without blood. Pt also c/o generalized weakness and dizziness(off balance) for the past 5 days. Pt denies fever. chest pain, shortness of air. Allergies/Adverse Reactions: amoxicillin [From Augmentin] Allergy (Intermediate, Verified 12/05/23 12:09) Swelling of Tongue and Lips clavulanic acid [From Augmentin] Allergy (Intermediate, Verified 12/05/23 12:09) Swelling of Tongue and Lips moxifloxacin Allergy (Intermediate, Verified 12/05/23 12:09) tongue swelling and dysphagia cephalexin monohydrate [From Keflex] Allergy (Verified 12/05/23 12:09) Hives erythromycin base [Erythromycin Base] Allergy (Verified 12/05/23 12:09) Hives minocycline Adverse Reaction (Intermediate, Verified 12/05/23 12:09) dizziness Home Medications: Amlodipine Besylate [Norvasc] 2.5 mg PO DAILY PRN 12/05/23 [History] Losartan Potassium 50 mg [Cozaar 50 MG] 50 mg PO BID 12/05/23 [History] Hx Tetanus, Diphtheria Vaccination/Date Given: Yes Hx Influenza Vaccination/Date Given: No Hx Pneumococcal Vaccination/Date Given: Yes (unknown) - Review of Systems Constitutional: No Fever Respiratory: No Dyspnea Cardiac: No Chest Pain Abdominal/Gastrointestinal: Vomiting, Diarrhea, No Abdominal Pain Genitourinary Symptoms: No Dysuria Neurological: Dizziness - Past Medical History Pertinent Past Medical History: Yes Neurological History: Peripheral Neuropathy Cardiac History: Hypertension Respiratory History: No Pertinent History Endocrine Medical History: Hypothyroidism Musculoskeletal History: Osteoarthritis Other Medical History: OSTEOPENIA, LYME DISEASE, NEUROPATHY. - Past Surgical History Past Surgical History: Yes Gastrointestinal: Hernia Repair Female Surgical History: Section, Hysterectomy Other Surgical History: July 2019- bladder repair - Social History Smoking Status: Never smoker Exposure to second hand smoke: No Drug Use: none Patient Lives Alone: No - Nursing Vital Signs Nursing Vital Signs: Initial Vital Signs Temperature 98.1 F 12/05/23 12:02 Pulse Rate 80 12/05/23 12:02 Respiratory Rate 17 12/05/23 12:02 Blood Pressure 184/102 12/05/23 12:02 O2 Sat by Pulse Oximetry 98 12/05/23 12:02 Pain Scale Pain Intensity 0 - Physical Exam General Appearance: alert Eye Exam: PERRL/EOMI Ears, Nose, Throat Exam: TMs normal, pharynx normal Neck Exam: normal inspection Respiratory Exam: normal breath sounds, airway intact Cardiovascular Exam: normal heart sounds Gastrointestinal/Abdomen Exam: soft, other (B.S. mildly hyperactive) Extremity Exam: No pedal edema Neurologic Exam: alert, cooperative, sensation nml, No motor deficits Skin Exam: warm, dry - Course EKG Interpreted by Me: RATE (78), Sinus Rhythm, Left [place] Deviation, Other (QTc = 462) - Radiology Exams Chest X-ray Interpretation: Discussed w/ radiologist (Continued nonacute hyperinflated chest with chronic features.) - CT Exams Abdomen/Pelvis CT Interpretation: Discussed w/radiologist (New gallbladder sludge/gravel. If there is clinical concern sonogram may yield further information. Again chronic findings including colonic diverticulosis, bilateral renal cysts, arteriosclerotic disease and chronic bony findings.) Ordered Tests: Active Orders 24 hr Category Date Time Status EKG-ER Only STAT Care 12/05/23 12:29 Active IV Insertion STAT Care 12/05/23 12:29 Active Oxygen-ED Only Nasal Cannula 2 lpm Care 12/05/23 17:38 Active ABDOMEN AND PELVIS W/0 CONTRAS [CT] Stat Exams 12/05/23 12:30 Completed CHEST 2 VIEWS (PA AND LAT) Stat Exams 12/05/23 12:[address] ANGIOGRAPHY NECK [CT] Stat Exams 12/05/23 18:51 Ordered CTA HEAD W AND/OR WO CONTRAST [CT] Stat Exams 12/05/23 18:50 Ordered MRI BRAIN W/O CONTRAST [MRI] Stat Exams 12/05/23 12:31 Completed AMYLASE Stat Lab 12/05/23 12:48 Completed CBC W DIFF Stat Lab 12/05/23 12:48 Completed CMP Stat Lab 12/05/23 12:48 Completed LIPASE Stat Lab 12/05/23 12:48 Completed Lactic Acid Stat Lab 12/05/23 12:42 Completed TROPONIN Q4H Lab 12/05/23 12:48 Completed TROPONIN Q4H Lab 12/05/23 16:18 Completed TROPONIN Q4H Lab 12/05/23 20:30 Ordered UA W/RFX UR CULTURE Stat Lab 12/05/23 13:51 Completed Medication Summary Generic Name Dose Route Start Last Admin Trade Name Neyda PRN Reason Stop Dose Admin Losartan Potassium 50 mg 12/06/23 18:02 12/05/23 18:14 Losartan Potassium 50 Mg Tablet PO 12/06/23 18:03 50 mg NOW ONE Administration Discontinued Medications Generic Name Dose Route Start Last Admin Trade Name Neyda PRN Reason Stop Dose Admin Aspirin 81 mg 12/05/23 18:45 Aspirin 81 Mg Tablet.Ec PO 12/05/23 18:46 1XONLY ONE Aspirin Confirm 12/05/23 18:55 Aspirin 81 Mg Tab.Chew Administered 12/05/23 18:56 Dose 81 mg .ROUTE .STK-MED ONE Sodium Chloride 1,000 mls @ 999 mls/hr 12/05/23 12:29 12/05/23 13:51 Sodium Chloride 0.9% 1000 Ml IV 12/05/23 13:29 Infused .Q1H1M STA Infusion Sodium Chloride Confirm 12/05/23 12:42 Sodium Chloride 0.9% 1000 Ml Administered 12/05/23 12:43 Dose 1,000 mls @ ud .ROUTE .STK-MED ONE Lorazepam 0.5 mg 12/05/23 13:58 12/05/23 14:18 Lorazepam 0.5 Mg Tablet PO 12/05/23 13:59 0.5 mg STAT ONE Administration Lorazepam Confirm 12/05/23 14:10 Lorazepam 1 Mg Tablet Administered 12/05/23 14:11 Dose 1 mg .ROUTE .STK-MED ONE Losartan Potassium Confirm 12/05/23 18:08 Losartan Potassium 50 Mg Tablet Administered 12/05/23 18:09 Dose 50 mg .ROUTE .STK-MED ONE Ondansetron HCl 4 mg 12/05/23 12:29 12/05/23 14:13 Ondansetron Hcl 4 Mg/2 Ml Vial IV 12/05/23 12:30 4 mg STAT ONE Administration Ondansetron HCl Confirm 12/05/23 12:41 Ondansetron Hcl 4 Mg/2 Ml Vial Administered 12/05/23 12:42 Dose 4 mg .ROUTE .STK-MED ONE Ondansetron HCl Confirm 12/05/23 14:10 Ondansetron Hcl 4 Mg/2 Ml Vial Administered 12/05/23 14:11 Dose 4 mg .ROUTE .STK-MED ONE Lab/Rad Data: Laboratory Result Diagrams 12/05/23 12:48 12/05/23 12:48 Laboratory Results 12/05/23 12/05/23 12/05/23 Range/Units 16:18 13:51 12:50 WBC (4.0-10.5) x10^3/uL RBC (4.1-5.4) x10^6/uL Hgb (12.0-16.0) g/dL Hct (35-47) % MCV (78-100) fL MCH (26-32) pg MCHC (32-36) g/dL RDW (11.5-14.0) % Plt Count (150-450) x10^3/uL MPV (7.5-11.0) fL Gran % (36.0-66.0) % Immature Gran % (Auto) (0.00-0.4) % Nucleat RBC Rel Count (0.00-0.1) % Eos # (Auto) (0-0.5) x10^3/uL Immature Gran # (Auto) (0.00-0.03) x10^3u/L Absolute Lymphs (auto) (1.0-4.6) x10^3/uL Absolute Monos (auto) (0.0-1.3) x10^3/uL Absolute Nucleated RBC (0.00-0.01) x10^3u/L Lymphocytes % (24.0-44.0) % Monocytes % (0.0-12.0) % Eosinophils % (0.00-5.0) % Basophils % (0.0-0.4) % Absolute Granulocytes (1.4-6.9) x10^3/uL Basophils # (0-0.4) x10^3/uL Sodium (135-145) mmol/L Potassium (3.5-5.1) mmol/L Chloride (98-107) mmol/L Carbon Dioxide (22-30) mmol/L Anion Gap (5-15) MEQ/L BUN (7-17) mg/dL Creatinine (0.52-1.04) mg/dL Estimated GFR ML/MIN Glucose (74-106) mg/dL Lactic Acid (0.4-2.0) Calcium (8.4-10.2) mg/dL Total Bilirubin (0.2-1.3) mg/dL AST (14-36) U/L ALT (0-35) U/L Alkaline Phosphatase (38-126) U/L Troponin I < 0.012 (0.000-0.033) ng/mL Serum Total Protein (6.3-8.2) g/dL Albumin (3.5-5.0) g/dL Amylase (30-110) U/L Lipase (23-300) U/L Urine Color Yellow (Yellow) Urine Appearance Clear (Clear) Urine pH 7.5 (4.6-8.0) Ur Specific [place] <=1.005 (1.005-1.030) Urine Protein Negative (Negative) Urine Glucose (UA) Negative (Negative) mg/dL Urine Ketones 15 A (Negative) Urine Blood Negative (Negative) Urine Nitrite Negative (Negative) Urine Bilirubin Negative (Negative) Urine Urobilinogen 0.2 (0.2) mg/dL Ur Leukocyte Esterase Negative (Negative) U Hyaline Cast (Auto) NONE SEEN (0-2) /LPF Urine Microscopic RBC 0-2 (0-5) /HPF Urine Microscopic WBC 0-2 (0-5) /HPF Ur Epithelial Cells None Seen (None Seen) /HPF Urine Bacteria None Seen (None Seen) /HPF Urine Culture Reflexed NO (NO) Influenza Type A Ag NEGATIVE (NEGATIVE) Influenza Type B Ag NEGATIVE (NEGATIVE) RSV (PCR) NEGATIVE (NEGATIVE) SARS-CoV-2 (PCR) NEGATIVE (NEGATIVE) Group A Strep Antibody (NEGATIVE) 12/05/23 12/05/23 12/05/23 Range/Units 12:50 12:48 12:48 WBC (4.0-10.5) x10^3/uL RBC (4.1-5.4) x10^6/uL Hgb (12.0-16.0) g/dL Hct (35-47) % MCV (78-100) fL MCH (26-32) pg MCHC (32-36) g/dL RDW (11.5-14.0) % Plt Count (150-450) x10^3/uL MPV (7.5-11.0) fL Gran % (36.0-66.0) % Immature Gran % (Auto) (0.00-0.4) % Nucleat RBC Rel Count (0.00-0.1) % Eos # (Auto) (0-0.5) x10^3/uL Immature Gran # (Auto) (0.00-0.03) x10^3u/L Absolute Lymphs (auto) (1.0-4.6) x10^3/uL Absolute Monos (auto) (0.0-1.3) x10^3/uL Absolute Nucleated RBC (0.00-0.01) x10^3u/L Lymphocytes % (24.0-44.0) % Monocytes % (0.0-12.0) % Eosinophils % (0.00-5.0) % Basophils % (0.0-0.4) % Absolute Granulocytes (1.4-6.9) x10^3/uL Basophils # (0-0.4) x10^3/uL Sodium 138 (135-145) mmol/L Potassium 4.1 (3.5-5.1) mmol/L Chloride 106 (98-107) mmol/L Carbon Dioxide 22 (22-30) mmol/L Anion Gap 14.3 (5-15) MEQ/L BUN 10 (7-17) mg/dL Creatinine 0.68 (0.52-1.04) mg/dL Estimated GFR 88.0 ML/MIN Glucose 151 H (74-106) mg/dL Lactic Acid (0.4-2.0) Calcium 9.0 (8.4-10.2) mg/dL Total Bilirubin 0.80 (0.2-1.3) mg/dL AST 24 (14-36) U/L ALT 13 (0-35) U/L Alkaline Phosphatase 101 (38-126) U/L Troponin I < 0.012 (0.000-0.033) ng/mL Serum Total Protein 7.8 (6.3-8.2) g/dL Albumin 4.6 (3.5-5.0) g/dL Amylase 58 (30-110) U/L Lipase 63 (23-300) U/L Urine Color (Yellow) Urine Appearance (Clear) Urine pH (4.6-8.0) Ur Specific [place] (1.005-1.030) Urine Protein (Negative) Urine Glucose (UA) (Negative) mg/dL Urine Ketones (Negative) Urine Blood (Negative) Urine Nitrite (Negative) Urine Bilirubin (Negative) Urine Urobilinogen (0.2) mg/dL Ur Leukocyte Esterase (Negative) U Hyaline Cast (Auto) (0-2) /LPF Urine Microscopic RBC (0-5) /HPF Urine Microscopic WBC (0-5) /HPF Ur Epithelial Cells (None Seen) /HPF Urine Bacteria (None Seen) /HPF Urine Culture Reflexed (NO) Influenza Type A Ag (NEGATIVE) Influenza Type B Ag (NEGATIVE) RSV (PCR) (NEGATIVE) SARS-CoV-2 (PCR) (NEGATIVE) Group A Strep Antibody NOT DETECTED (NEGATIVE) 12/05/23 12/05/23 Range/Units 12:48 12:42 WBC 7.8 (4.0-10.5) x10^3/uL RBC 4.22 (4.1-5.4) x10^6/uL Hgb 12.9 (12.0-16.0) g/dL Hct 38.0 (35-47) % MCV 90.0 (78-100) fL MCH 30.6 (26-32) pg MCHC 33.9 (32-36) g/dL RDW 11.9 (11.5-14.0) % Plt Count 340 (150-450) x10^3/uL MPV 8.8 (7.5-11.0) fL Gran % 88.8 H (36.0-66.0) % Immature Gran % (Auto) 0.3 (0.00-0.4) % Nucleat RBC Rel Count 0.0 (0.00-0.1) % Eos # (Auto) 0 (0-0.5) x10^3/uL Immature Gran # (Auto) 0.02 (0.00-0.03) x10^3u/L Absolute Lymphs (auto) 0.69 L (1.0-4.6) x10^3/uL Absolute Monos (auto) 0.13 (0.0-1.3) x10^3/uL Absolute Nucleated RBC 0.00 (0.00-0.01) x10^3u/L Lymphocytes % 8.9 L (24.0-44.0) % Monocytes % 1.7 (0.0-12.0) % Eosinophils % 0.0 (0.00-5.0) % Basophils % 0.3 (0.0-0.4) % Absolute Granulocytes 6.91 H (1.4-6.9) x10^3/uL Basophils # 0.02 (0-0.4) x10^3/uL Sodium (135-145) mmol/L Potassium (3.5-5.1) mmol/L Chloride (98-107) mmol/L Carbon Dioxide (22-30) mmol/L Anion Gap (5-15) MEQ/L BUN (7-17) mg/dL Creatinine (0.52-1.04) mg/dL Estimated GFR ML/MIN Glucose (74-106) mg/dL Lactic Acid 1.7 (0.4-2.0) Calcium (8.4-10.2) mg/dL Total Bilirubin (0.2-1.3) mg/dL AST (14-36) U/L ALT (0-35) U/L Alkaline Phosphatase (38-126) U/L Troponin I (0.000-0.033) ng/mL Serum Total Protein (6.3-8.2) g/dL Albumin (3.5-5.0) g/dL Amylase (30-110) U/L Lipase (23-300) U/L Urine Color (Yellow) Urine Appearance (Clear) Urine pH (4.6-8.0) Ur Specific [place] (1.005-1.030) Urine Protein (Negative) Urine Glucose (UA) (Negative) mg/dL Urine Ketones (Negative) Urine Blood (Negative) Urine Nitrite (Negative) Urine Bilirubin (Negative) Urine Urobilinogen (0.2) mg/dL Ur Leukocyte Esterase (Negative) U Hyaline Cast (Auto) (0-2) /LPF Urine Microscopic RBC (0-5) /HPF Urine Microscopic WBC (0-5) /HPF Ur Epithelial Cells (None Seen) /HPF Urine Bacteria (None Seen) /HPF Urine Culture Reflexed (NO) Influenza Type A Ag (NEGATIVE) Influenza Type B Ag (NEGATIVE) RSV (PCR) (NEGATIVE) SARS-CoV-2 (PCR) (NEGATIVE) Group A Strep Antibody (NEGATIVE) - Progress Progress Note: 12/05/23 17:31 MRI of Brain without contrast: Multifocal small patchy acute ischemia left cerebellum. no acute hemorrhage/mass effect. Atrophy and degenerative micro- ischemia within normal limits for patient's age. Discussed with Dr.: Glendy (Spoke with Dr. Mendoza who recommended a tele-Neuro evaluation.), Other (Spoke with Dr. Ramey([id number])(Neurologist) who advised a CTA head & neck and give an 81mg EC ASA.) - Departure Clinical Impression: Generalized weakness, Dizziness, Vomiting, Diarrhea, Acute ischemia left cerebellum, L acute cerebellar ischemic infarction Condition: Stable Critical Care Time: No Referrals: JAMES TORRES DO [Primary Care Provider] - Follow up/PCP as directed
[2023-12-05] MEDS ORDERED: Zofran 4 MG/2 ML VIAL ONE ×2 (12:41→14:10)
[2023-12-05] MEDS ORDERED: Sodium Chloride 0.9% 1000 ML 1,000 ML ONE (12:42)
[2023-12-05] MEDS: Sodium Chloride 0.9% 1000 ML 1,000 ML IV STA (12:46)
[2023-12-05] MEDS: Zofran 4 MG/2 ML VIAL IV ONE (12:47)
[2023-12-05 12:53] LABS: Absolute Neutrophil Ct (ANC) 6.91 x10^3/uL (1.4-6.9); BASOPHIL % 0.3 % (0.0-0.4); Basophil (Absolute #) 0.02 x10^3/uL (0-0.4); Eosinophil (Absolute #) 0 x10^3/uL (0-0.5); Hemoglobin 12.9 g/dL (12.0-16.0); IMMATURE GRAN # 0.02 x10^3u/L (0.00-0.03); IMMATURE GRAN % 0.3 % (0.00-0.4); Lymphocyte (Absolute #) 0.69 x10^3/uL (1.0-4.6); Lymphocytes % 8.9 % (24.0-44.0); Mean Corpuscular Hemoglobin 30.6 pg (26-32); Mean Corpuscular Hgb Concent. 33.9 g/dL (32-36); Mean Platelet Volume 8.8 fL (7.5-11.0); Monocyte (Absolute #) 0.13 x10^3/uL (0.0-1.3); Monocytes % 1.7 % (0.0-12.0); Neutrophil % 88.8 % (36.0-66.0); Platelet Count 340 x10^3/uL (150-450); Red Blood Count 4.22 x10^6/uL (4.1-5.4); Red Cell Distribution Width 11.9 % (11.5-14.0); White Blood Count 7.8 x10^3/uL (4.0-10.5)
[2023-12-05 13:15] LABS: ALBUMIN 4.6 g/dL (3.5-5.0); ANION GAP 14.3 MEQ/L (5-15); BILIRUBIN,TOTAL 0.8 mg/dL (0.2-1.3); Creatinine 1 0.68 mg/dL (0.52-1.04); Potassium 4.1 mmol/L (3.5-5.1); Total Protein 7.8 g/dL (6.3-8.2)
[2023-12-05 13:39] LABS: INFLUENZA A NEGATIVE (NEGATIVE); INFLUENZA B NEGATIVE (NEGATIVE); RESPIRATORY SYNCTIAL VIRUS NEGATIVE (NEGATIVE); SARS-CoV-2 Xpert Express NEGATIVE (NEGATIVE)
[2023-12-05] MEDS ORDERED: Ativan 1 MG ONE (14:10)
[2023-12-05] MEDS: Ativan 0.5 MG PO ONE (14:18)
--- NOTE | 2023-12-05 14:37 | XRAY ---
Indication: Weakness. Comparison: June 19, 2007 AP/lateral chest obtained on cart remains hyperinflated and clear. Heart not enlarged again with tortuous descending aorta. Bony thorax intact again with osteopenia, mild degenerative changes, and moderate levorotoscoliosis. Impression: Continued nonacute hyperinflated chest with chronic features.
[2023-12-05 14:53] LABS: Appearance Clear (Clear); Bacteria None Seen /HPF (None Seen); Bilirubin Negative (Negative); Blood Negative (Negative); Epithelial Cells None Seen /HPF (None Seen); Glucose, Urine Negative (Negative); Hyaline Casts NONE SEEN /LPF (0-2); Ketones 15 (Negative); Leukocyte Esterase Negative (Negative); Nitrite Negative (Negative); Ph 7.5 (4.6-8.0); Protein,Urine Dip Negative (Negative); RBC 0-2 /HPF (0-5); Specific Gravity <=1.005 (1.005-1.030); Urobilinogen 0.2 mg/dL (0.2); WBC 0-2 /HPF (0-5)
[2023-12-05 15:00] LABS: ADD URINE CULTURE? NO (NO)
--- NOTE | 2023-12-05 16:46 | XRAY ---
Indication: Head trauma. Vomiting. Sagittal, coronal, and axial MRI brain performed without contrast using T1, T2, FLAIR, diffusion, and ADC sequences. Comparison: None Age-appropriate global atrophy with very minimal periventricular degenerative micro-ischemia signal bilaterally. Left cerebellum demonstrates multifocal small patchy areas of restricted signal on diffusion imaging favoring ischemia. Largest focus ischemia is 1.3 x 0.7 cm. No acute intracranial hemorrhage, abnormal extra-axial fluid collection, or mass effect. Fourth ventricle is midline without hydrocephalus. 7/8 cranial nerve complex bilaterally symmetric. Normal flow void signal within the major intracerebral circulation. Normal appearing craniocervical junction and sella turcica. Minimal flow signal in both mastoid air cells presumed inflammatory. Incidental hyperostosis frontalis interna. Impression: 1. Multifocal small patchy acute ischemia left cerebellum. No acute hemorrhage/mass effect. 2. Atrophy and degenerative micro-ischemia within normal limits for patient's age.
--- NOTE | 2023-12-05 16:50 | XRAY ---
Indication: Vomiting. Status post fall with head injury one week ago. Multiple contiguous axial images obtained through the abdomen and pelvis without contrast. Comparison: February 23, 2020 Lung bases clear. Heart not enlarged. Noncontrasted stomach and bowel loops appear nonobstructed again with mild scattered descending and sigmoid diverticulosis. Again appendectomy and hysterectomy. Stable small bilateral renal parapelvic cysts. New tiny gallbladder sludge/gravel. No free fluid/air. Remaining liver, gallbladder, pancreas, spleen, adrenal glands, kidneys, ureters, and bladder are unremarkable for noncontrast exam. Stable minimal aortoiliac calcifications without AAA. Osseous structures intact again with osteopenia, mild multilevel degenerative spondylosis, and mild dextroscoliosis. Impression: 1. New tiny gallbladder sludge/gravel. If there is clinical concern, sonogram may yield further information. 2. Again chronic findings including colonic diverticulosis, bilateral renal cysts, arteriosclerotic disease, and chronic bony findings.
[2023-12-05] MEDS ORDERED: Cozaar 50 MG ONE (18:08)
[2023-12-05] MEDS: Cozaar 50 MG PO ONE (18:14)
[2023-12-05] MEDS ORDERED: BABY ASPIRIN 81 MG CHEW ONE (18:55)
[2023-12-05] MEDS: ECOTRIN 81 MG PO ONE (19:33)
[2023-12-06] MEDS ORDERED: NON-FORMULARY ITEM (Amlodipine Besylate [Norvasc] 2.5 MG Tablet) PO PRN (02:00)
[2023-12-06] MEDS ORDERED: MILK OF MAGNESIA 30 ML PO PRN (02:01)
[2023-12-06] MEDS ORDERED: TYLENOL 325 MG PO PRN (02:01)
[2023-12-06] MEDS ORDERED: Zofran 4 MG/2 ML VIAL IV PRN (02:01)
--- NOTE | 2023-12-06 02:19 | PCM.HP ---
History of Present Illness - Chief Complaint Chief Complaint: stroke Date: 12/05/23 History of Present Illness: is a 78 year old female who presented to the hospital with nausea, vomiting, diarrhea, and dizziness for 5 days. Of note, approximately 7 days ago, the patient tripped in her kitchen and hit the back of her head, and she had a negative trauma imaging workup at another facility approximately 5 days ago. She denies fever or chest pain. In the ED, workup revealed evidence of a stroke and the patient was evaluated by neurology, with a recommendation for aspirin 81 mg daily and admission for observation. At the time of my evaluation, the patient denies any dizziness, blurry vision, or weakness/numbness in her extremities. - Review of Systems Constitutional: Fatigue Eyes: No Symptoms Ears, Nose, & Throat: No Symptoms Respiratory: No Symptoms Cardiac: No Symptoms Abdominal/Gastrointestinal: Nausea, Vomiting, Diarrhea Genitourinary Symptoms: No Symptoms Musculoskeletal: Fall Neurological: Dizziness Psychological: No Symptoms Endocrine: No Symptoms Hematologic/Lymphatic: No Symptoms Medications & Allergies Home Medications: Home Medication List Amlodipine Besylate [Norvasc] 2.5 mg PO DAILY PRN 12/05/23 [History Confirmed 12/05/23] Losartan Potassium 50 mg [Cozaar 50 MG] 50 mg PO BID 12/05/23 [History Confirmed 12/05/23] Levothyroxine Sodium 25 Mcg [Synthroid 25 Mcg] 25 mcg PO DAILY 12/06/23 [History Confirmed 12/06/23] Liothyronine Sodium 10 mcg PO DAILY 12/06/23 [History Confirmed 12/06/23] Allergies/Adverse Reactions: Allergies Allergy/AdvReac Type Severity Reaction Status Date / Time amoxicillin [From Augmentin] Allergy Intermediate Swelling Verified 12/05/23 12:09 of Tongue and Lips clavulanic acid Allergy Intermediate Swelling Verified 12/05/23 12:09 [From Augmentin] of Tongue and Lips moxifloxacin Allergy Intermediate Verified 12/05/23 12:09 cephalexin monohydrate Allergy Hives Verified 12/05/23 12:09 [From Keflex] erythromycin base Allergy Hives Verified 12/05/23 12:09 [Erythromycin Base] minocycline AdvReac Intermediate Verified 12/05/23 12:09 - Past Medical History Past Medical History: Yes Neurological History: Peripheral Neuropathy ENT History: Cataracts Cardiac History: Hypertension Respiratory History: No Pertinent History Endocrine Medical History: Hypothyroidism Musculoskelatal History: Osteoarthritis GI Medical History: No Pertinent History History: No Pertinent History Pyscho-Social History: No Pertinent History Reproductive Disorders: No Pertinent History Comment: OSTEOPENIA, LYME DISEASE, NEUROPATHY. - Female History Are you now?: No - Past Surgical History Past Surgical History: Yes Neuro Surgical History: No Pertinent History Cardiac History: No Pertinent History Respiratory Surgery: No Pertinent History GI Surgical History: Hernia Repair Genitourinary Surgical Hx: No Pertinent History Musculskeletal Surgical Hx: No Pertinent History Female Surgical History: Section, Hysterectomy Other Surgical History: July 2019- bladder repair - Social History Smoking Status: Never smoker Exposure to second hand smoke: No Alcohol: None Drug Use: none - Social Determinants of Health Will the patient participate in the screening: Yes Do you worry about a steady place to live?: No Do you have any problems with any of the following?: No known problems In the past 12 months,have you had to go without utilities?: No Have you or anyone in your house had to go without enough: No Transportation Issues: No Has anyone in your support network made you feel unsafe?: No Does the patient want assistance with any of the above?: No - Physical Exam Vital Signs: Vital Signs - 24 hr Temp Pulse Resp BP BP Pulse Ox 12/06/23 01:40 98 12/06/23 00:00 96 12/05/23 23:55 98.2 F 82 18 156/85 98 12/05/23 23:28 98.2 F 82 18 156/85 98 12/05/23 23:00 87 167/102 99 12/05/23 22:30 84 18 152/106 99 12/05/23 22:00 86 19 165/97 99 12/05/23 21:30 87 19 175/101 97 12/05/23 21:00 94 H 22 166/110 99 12/05/23 20:56 90 17 181/104 99 12/05/23 20:55 92 H 10 L 98 12/05/23 20:50 92 H 10 L 99 12/05/23 20:42 94 H 20 100 12/05/23 20:00 94 H 18 171/100 99 12/05/23 19:30 91 H 14 165/103 96 12/05/23 19:00 92 H 19 167/98 95 12/05/23 18:30 88 18 168/103 93 L 12/05/23 18:00 86 17 156/101 96 12/05/23 17:30 87 16 170/90 95 12/05/23 17:00 170/89 92 L 12/05/23 16:30 82 17 177/100 92 L 12/05/23 16:12 88 18 176/113 95 12/05/23 14:30 191/107 12/05/23 14:22 82 17 187/107 97 12/05/23 14:21 98 12/05/23 14:20 99 12/05/23 14:10 98 12/05/23 14:03 99 12/05/23 13:30 187/102 12/05/23 13:00 78 15 185/101 98 12/05/23 12:30 77 16 188/137 99 12/05/23 12:20 80 16 180/107 99 12/05/23 12:02 98.1 F 80 17 184/102 98 General Appearance: no apparent distress, alert Neurologic Exam: alert, oriented x 3, cooperative, venetian blind cleaner II-XII nml as tested, normal mood/affect, nml cerebellar function (on exam, the patient has no nystagmus and is able to complete finger to nose bilaterally without dysmetria) Eye Exam: PERRL/EOMI, eyes nml inspection Ears, Nose, Throat Exam: normal ENT inspection Neck Exam: normal inspection, non-tender, supple, full range of motion Respiratory Exam: normal breath sounds, lungs clear Cardiovascular Exam: regular rate/rhythm, normal heart sounds Gastrointestinal/Abdomen Exam: soft, normal bowel sounds Back Exam: normal range of motion Extremity Exam: normal inspection, normal range of motion Skin Exam: normal color Results - Labs Lab/Micro Results: Lab Results-Last 24 Hours 12/05/23 12/05/23 12/05/23 Range/Units 12:42 12:48 12:48 WBC 7.8 (4.0-10.5) x10^3/uL RBC 4.22 (4.1-5.4) x10^6/uL Hgb 12.9 (12.0-16.0) g/dL Hct 38.0 (35-47) % MCV 90.0 (78-100) fL MCH 30.6 (26-32) pg MCHC 33.9 (32-36) g/dL RDW 11.9 (11.5-14.0) % Plt Count 340 (150-450) x10^3/uL MPV 8.8 (7.5-11.0) fL Gran % 88.8 H (36.0-66.0) % Immature Gran % (Auto) 0.3 (0.00-0.4) % Nucleat RBC Rel Count 0.0 (0.00-0.1) % Eos # (Auto) 0 (0-0.5) x10^3/uL Immature Gran # (Auto) 0.02 (0.00-0.03) x10^3u/L Absolute Lymphs (auto) 0.69 L (1.0-4.6) x10^3/uL Absolute Monos (auto) 0.13 (0.0-1.3) x10^3/uL Absolute Nucleated RBC 0.00 (0.00-0.01) x10^3u/L Lymphocytes % 8.9 L (24.0-44.0) % Monocytes % 1.7 (0.0-12.0) % Eosinophils % 0.0 (0.00-5.0) % Basophils % 0.3 (0.0-0.4) % Absolute Granulocytes 6.91 H (1.4-6.9) x10^3/uL Basophils # 0.02 (0-0.4) x10^3/uL Sodium 138 (135-145) mmol/L Potassium 4.1 (3.5-5.1) mmol/L Chloride 106 (98-107) mmol/L Carbon Dioxide 22 (22-30) mmol/L Anion Gap 14.3 (5-15) MEQ/L BUN 10 (7-17) mg/dL Creatinine 0.68 (0.52-1.04) mg/dL Estimated GFR 88.0 ML/MIN Glucose 151 H (74-106) mg/dL Lactic Acid 1.7 (0.4-2.0) Calcium 9.0 (8.4-10.2) mg/dL Total Bilirubin 0.80 (0.2-1.3) mg/dL AST 24 (14-36) U/L ALT 13 (0-35) U/L Alkaline Phosphatase 101 (38-126) U/L Troponin I (0.000-0.033) ng/mL Serum Total Protein 7.8 (6.3-8.2) g/dL Albumin 4.6 (3.5-5.0) g/dL Amylase 58 (30-110) U/L Lipase 63 (23-300) U/L Urine Color (Yellow) Urine Appearance (Clear) Urine pH (4.6-8.0) Ur Specific Unity (1.005-1.030) Urine Protein (Negative) Urine Glucose (UA) (Negative) mg/dL Urine Ketones (Negative) Urine Blood (Negative) Urine Nitrite (Negative) Urine Bilirubin (Negative) Urine Urobilinogen (0.2) mg/dL Ur Leukocyte Esterase (Negative) U Hyaline Cast (Auto) (0-2) /LPF Urine Microscopic RBC (0-5) /HPF Urine Microscopic WBC (0-5) /HPF Ur Epithelial Cells (None Seen) /HPF Urine Bacteria (None Seen) /HPF Urine Culture Reflexed (NO) Influenza Type A Ag (NEGATIVE) Influenza Type B Ag (NEGATIVE) RSV (PCR) (NEGATIVE) SARS-CoV-2 (PCR) (NEGATIVE) Group A Strep Antibody (NEGATIVE) 12/05/23 12/05/23 12/05/23 Range/Units 12:48 12:50 12:50 WBC (4.0-10.5) x10^3/uL RBC (4.1-5.4) x10^6/uL Hgb (12.0-16.0) g/dL Hct (35-47) % MCV (78-100) fL MCH (26-32) pg MCHC (32-36) g/dL RDW (11.5-14.0) % Plt Count (150-450) x10^3/uL MPV (7.5-11.0) fL Gran % (36.0-66.0) % Immature Gran % (Auto) (0.00-0.4) % Nucleat RBC Rel Count (0.00-0.1) % Eos # (Auto) (0-0.5) x10^3/uL Immature Gran # (Auto) (0.00-0.03) x10^3u/L Absolute Lymphs (auto) (1.0-4.6) x10^3/uL Absolute Monos (auto) (0.0-1.3) x10^3/uL Absolute Nucleated RBC (0.00-0.01) x10^3u/L Lymphocytes % (24.0-44.0) % Monocytes % (0.0-12.0) % Eosinophils % (0.00-5.0) % Basophils % (0.0-0.4) % Absolute Granulocytes (1.4-6.9) x10^3/uL Basophils # (0-0.4) x10^3/uL Sodium (135-145) mmol/L Potassium (3.5-5.1) mmol/L Chloride (98-107) mmol/L Carbon Dioxide (22-30) mmol/L Anion Gap (5-15) MEQ/L BUN (7-17) mg/dL Creatinine (0.52-1.04) mg/dL Estimated GFR ML/MIN Glucose (74-106) mg/dL Lactic Acid (0.4-2.0) Calcium (8.4-10.2) mg/dL Total Bilirubin (0.2-1.3) mg/dL AST (14-36) U/L ALT (0-35) U/L Alkaline Phosphatase (38-126) U/L Troponin I < 0.012 (0.000-0.033) ng/mL Serum Total Protein (6.3-8.2) g/dL Albumin (3.5-5.0) g/dL Amylase (30-110) U/L Lipase (23-300) U/L Urine Color (Yellow) Urine Appearance (Clear) Urine pH (4.6-8.0) Ur Specific Unity (1.005-1.030) Urine Protein (Negative) Urine Glucose (UA) (Negative) mg/dL Urine Ketones (Negative) Urine Blood (Negative) Urine Nitrite (Negative) Urine Bilirubin (Negative) Urine Urobilinogen (0.2) mg/dL Ur Leukocyte Esterase (Negative) U Hyaline Cast (Auto) (0-2) /LPF Urine Microscopic RBC (0-5) /HPF Urine Microscopic WBC (0-5) /HPF Ur Epithelial Cells (None Seen) /HPF Urine Bacteria (None Seen) /HPF Urine Culture Reflexed (NO) Influenza Type A Ag NEGATIVE (NEGATIVE) Influenza Type B Ag NEGATIVE (NEGATIVE) RSV (PCR) NEGATIVE (NEGATIVE) SARS-CoV-2 (PCR) NEGATIVE (NEGATIVE) Group A Strep Antibody NOT DETECTED (NEGATIVE) 12/05/23 12/05/23 12/05/23 Range/Units 13:51 16:18 20:03 WBC (4.0-10.5) x10^3/uL RBC (4.1-5.4) x10^6/uL Hgb (12.0-16.0) g/dL Hct (35-47) % MCV (78-100) fL MCH (26-32) pg MCHC (32-36) g/dL RDW (11.5-14.0) % Plt Count (150-450) x10^3/uL MPV (7.5-11.0) fL Gran % (36.0-66.0) % Immature Gran % (Auto) (0.00-0.4) % Nucleat RBC Rel Count (0.00-0.1) % Eos # (Auto) (0-0.5) x10^3/uL Immature Gran # (Auto) (0.00-0.03) x10^3u/L Absolute Lymphs (auto) (1.0-4.6) x10^3/uL Absolute Monos (auto) (0.0-1.3) x10^3/uL Absolute Nucleated RBC (0.00-0.01) x10^3u/L Lymphocytes % (24.0-44.0) % Monocytes % (0.0-12.0) % Eosinophils % (0.00-5.0) % Basophils % (0.0-0.4) % Absolute Granulocytes (1.4-6.9) x10^3/uL Basophils # (0-0.4) x10^3/uL Sodium (135-145) mmol/L Potassium (3.5-5.1) mmol/L Chloride (98-107) mmol/L Carbon Dioxide (22-30) mmol/L Anion Gap (5-15) MEQ/L BUN (7-17) mg/dL Creatinine (0.52-1.04) mg/dL Estimated GFR ML/MIN Glucose (74-106) mg/dL Lactic Acid (0.4-2.0) Calcium (8.4-10.2) mg/dL Total Bilirubin (0.2-1.3) mg/dL AST (14-36) U/L ALT (0-35) U/L Alkaline Phosphatase (38-126) U/L Troponin I < 0.012 < 0.012 (0.000-0.033) ng/mL Serum Total Protein (6.3-8.2) g/dL Albumin (3.5-5.0) g/dL Amylase (30-110) U/L Lipase (23-300) U/L Urine Color Yellow (Yellow) Urine Appearance Clear (Clear) Urine pH 7.5 (4.6-8.0) Ur Specific Unity <=1.005 (1.005-1.030) Urine Protein Negative (Negative) Urine Glucose (UA) Negative (Negative) mg/dL Urine Ketones 15 A (Negative) Urine Blood Negative (Negative) Urine Nitrite Negative (Negative) Urine Bilirubin Negative (Negative) Urine Urobilinogen 0.2 (0.2) mg/dL Ur Leukocyte Esterase Negative (Negative) U Hyaline Cast (Auto) NONE SEEN (0-2) /LPF Urine Microscopic RBC 0-2 (0-5) /HPF Urine Microscopic WBC 0-2 (0-5) /HPF Ur Epithelial Cells None Seen (None Seen) /HPF Urine Bacteria None Seen (None Seen) /HPF Urine Culture Reflexed NO (NO) Influenza Type A Ag (NEGATIVE) Influenza Type B Ag (NEGATIVE) RSV (PCR) (NEGATIVE) SARS-CoV-2 (PCR) (NEGATIVE) Group A Strep Antibody (NEGATIVE) - Radiology Impressions Radiology Exams & Impressions: Radiology Procedures Category Date Time Status ABDOMEN AND PELVIS W/0 CONTRAS [CT] Stat Exams 12/05/23 12:30 Completed CHEST 2 VIEWS (PA AND LAT) Stat Exams 12/05/23 12:[address] ANGIOGRAPHY NECK [CT] Stat Exams 12/05/23 18:51 Taken CTA HEAD W AND/OR WO CONTRAST [CT] Stat Exams 12/05/23 18:50 Taken ECHO W/2D AND DOPPLER [US] Routine Exams 12/06/23 02:02 Ordered MRI BRAIN W/O CONTRAST [MRI] Stat Exams 12/05/23 12:31 Completed Assessment/Plan (1) Cerebellar stroke Current Visit: Yes Status: Acute Assessment & Plan: Appreciate neurology evaluation. MRI demonstrated left cerebellar stroke. CTA was negative per preliminary interpretation. - ASA 81 mg daily - Telemetry - check FLP, A1C, TSH (has hypothyroidism) - ECHO - PT/OT - meclizine prn - Neuro checks Code(s): I63.9 - CEREBRAL INFARCTION, UNSPECIFIED (2) Dizziness Current Visit: Yes Status: Acute Assessment & Plan: Meclizine prn. PT eval. Code(s): R42 - DIZZINESS AND GIDDINESS (3) Vomiting Current Visit: Yes Status: Acute Assessment & Plan: Zofran prn. Code(s): R11.10 - VOMITING, UNSPECIFIED (4) Hypertension Current Visit: No Status: Acute Assessment & Plan: Monitor BP trend. Permissive hypertension, though the patient may be approximately 5 days post the neurovascular event (when the dizziness began), so will continue the patient's home regimen at this time. Code(s): I10 - ESSENTIAL (PRIMARY) HYPERTENSION Telemedicine Encounter - Telemedicine Encounter Telemedicine Encounter: The entirety of this encounter was performed via Telemedicine"
[2023-12-06 04:53] LABS: Absolute Neutrophil Ct (ANC) 6.17 x10^3/uL (1.4-6.9); BASOPHIL % 0.5 % (0.0-0.4); Basophil (Absolute #) 0.05 x10^3/uL (0-0.4); Eosinophil % 0.4 % (0.00-5.0); Eosinophil (Absolute #) 0.04 x10^3/uL (0-0.5); Hematocrit 34.8 % (35-47); Hemoglobin 11.9 g/dL (12.0-16.0); IMMATURE GRAN # 0.02 x10^3u/L (0.00-0.03); IMMATURE GRAN % 0.2 % (0.00-0.4); Lymphocyte (Absolute #) 2.74 x10^3/uL (1.0-4.6); Lymphocytes % 28.2 % (24.0-44.0); Mean Cell Volume 90.6 fL (78-100); Mean Corpuscular Hgb Concent. 34.2 g/dL (32-36); Mean Platelet Volume 8.9 fL (7.5-11.0); Monocyte (Absolute #) 0.68 x10^3/uL (0.0-1.3); Neutrophil % 63.7 % (36.0-66.0); Platelet Count 349 x10^3/uL (150-450); Red Blood Count 3.84 x10^6/uL (4.1-5.4); Red Cell Distribution Width 12.2 % (11.5-14.0); White Blood Count 9.7 x10^3/uL (4.0-10.5)
[2023-12-06 05:41] LABS: ANION GAP 11.3 MEQ/L (5-15); Calcium 8.9 mg/dL (8.4-10.2); Creatinine 1 0.82 mg/dL (0.52-1.04); EST GLOMERULAR FILTRATION RATE 72.3 ML/MIN; Potassium 3.4 mmol/L (3.5-5.1); TSH, 3RD Generation 1.423 mIU/L (0.470-4.680)
[2023-12-06] MEDS ORDERED: NORVASC 5 MG PO PRN (06:13)
[2023-12-06] MEDS: Klor Con PO ONE (06:32)
[2023-12-06] MEDS ORDERED: MEDICATION INTERVENTION MC SCH (07:30)
[2023-12-06] MEDS: SYNTHROID 25 MCG PO SCH (08:01)
[2023-12-06] MEDS: PATIENT OWN MEDICATION PO SCH (08:14)
--- NOTE | 2023-12-06 09:17 | XRAY ---
Indication: Headache. Conventional contrast enhanced CTA neck performed using 80 cc Isovue 370 contrast. 2-D sagittal and coronal reformatted images obtained. Additional 3-D reformatted images obtained using a separate workstation. Comparison: None Visualized aortic arch is negative for aneurysm/dissection. Normal patent branching right brachiocephalic, left common carotid, and left subclavian arteries. Examination right carotid circulation demonstrates tortuous proximal common carotid artery. Widely patent common carotid, carotid bulb, internal carotid, and external carotid arteries. Examination left carotid circulation also demonstrates widely patent common carotid, carotid bulb, internal carotid, and external carotid arteries. Vertebral arteries are bilaterally symmetric and normal in CTA appearance. Visualized soft tissues demonstrate symmetry to the parotid and submandibular glands. A few subcentimeter cervical and submandibular lymph nodes, none pathologically enlarged. Thyroid gland enhances homogeneously. Supra-and infraglottic airway are widely patent. Normal epiglottis. Visualized osseous structures intact with osteopenia and minimal C3-C6 degenerative changes. Lung apices are clear. Impression: 1. Normal CTA neck with contrast exam. 2. Incidental osteopenia and minimal multilevel cervical degenerative spondylosis.
--- NOTE | 2023-12-06 09:21 | XRAY ---
Indication: Headache. Left cerebellar ischemia seen on same day MRI brain exam. Conventional contrast enhanced CTA head performed using 80 cc Isovue 370 contrast. 2-D sagittal and coronal reformatted images obtained. Additional 3-D reformatted images obtained using a separate workstation. Comparison: None Internal carotid arteries are bilaterally symmetric with very minimal arteriosclerotic calcifications in both parasellar segments without critical stenosis/obstruction. Normal carotid terminus with normal branching A1 and M1 segments bilaterally. More distal anterior cerebral, middle cerebral, anterior communicating, and posterior communicating arteries are normal in CTA appearance bilaterally. Posterior circulation demonstrates normal CTA appearance to the basilar, left/right posterior cerebral, and left/right anterior inferior cerebellar arteries. Mid to upper head is markedly limited due to motion artifact limiting evaluation of the venous drainage/sinuses. No obvious venous sinus filling defect/thrombosis. Visualized brain parenchyma is negative for abnormal enhancing intra-or extra-axial mass. Impression: 1. Motion artifact. 2. 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 Remaining CTA head with contrast exam is grossly negative.
[2023-12-06] MEDS ORDERED: NON-FORMULARY ITEM (Liothyronine Sodium [Liothyronine Sodium] 5 MCG Tablet) PO SCH (10:00)
[2023-12-06] MEDS ORDERED: BABY ASPIRIN 81 MG CHEW PO SCH (10:00)
[2023-12-06] MEDS: Cozaar 50 MG PO SCH (10:30)
[2023-12-06] MEDS: ENOXAPARIN SODIUM SQ SCH (10:30)
[2023-12-06] MEDS: ECOTRIN 81 MG PO SCH (10:30)
[2023-12-06] MEDS: ANTIVERT 25 MG PO PRN (10:37)
--- NOTE | 2023-12-06 11:56 | PCM.NOTE ---
Date and Time: 12/06/23 1148 Subjective Assessment: 12/06/23 is a 78 year old female with PMHX of HTN, OA, peripheral neuropathy, and hypothyroidism. She presented to the hospital on 12/05/23 with nausea, vomiting, diarrhea, and dizziness for 5 days. Of note, approximately 7 days ago, the patient tripped in her kitchen and hit the back of her head, and she had a negative trauma imaging workup at another facility approximately 5 days ago. She denies fever or chest pain. In the ED, workup revealed evidence of a stroke and the patient was evaluated by neurology, with a recommendation for aspirin 81 mg daily and admission for observation. MRI shows cerebellar stroke. She c/o of dizziness and blurred vision when up walking. When checking visual garnett pt began feeling dizzy and felt as if her vision was fuzzy. She is to have an echo today. PT/OT eval for home needs. She rpeorts she has to go home as she and her son help to take care of her . She is refusing rehab placement. She is agreeable to [facility]. Case management discussed a [facility] that also provides Pt treatment for vertigo. She is agreeable. She does have + orthostats this morning. - Review of Systems Constitutional: No Fever, No Chills Eyes: Other (blurred vision at times) Ears, Nose, & Throat: No Symptoms Respiratory: No Cough, No Short Of Breath Cardiac: No Chest Pain, No Edema, No Syncope Abdominal/Gastrointestinal: No Abdominal Pain, No Nausea, No Vomiting, No Diarrhea Genitourinary Symptoms: No Dysuria Musculoskeletal: No Back Pain, No Neck Pain Skin: No Rash Neurological: Dizziness, No Focal Weakness, No Sensory Changes Psychological: No Symptoms Endocrine: No Symptoms Hematologic/Lymphatic: No Symptoms Immunological/Allergic: No Symptoms Objective Exam General Appearance: no apparent distress, alert Neurologic Exam: alert, oriented x 3, cooperative, 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 as tested (pt reported dizziness and blurred with visual field test.), normal mood/affect, sensation nml, other, No motor deficits Skin Exam: normal color, warm, dry Eye Exam: PERRL, EOMI, eyes nml inspection Ears, Nose, Throat Exam: normal ENT inspection, pharynx normal, moist mucous membranes Neck Exam: normal inspection, non-tender, supple, full range of motion Respiratory Exam: normal breath sounds, lungs clear, No respiratory distress Cardiovascular Exam: regular rate/rhythm, normal heart sounds Gastrointestinal/Abdomen Exam: soft, No tenderness, No mass Extremity Exam: normal inspection, normal range of motion Back Exam: normal inspection, normal range of motion, No CVA tenderness, No vertebral tenderness Pelvic Exam: deferred Rectal Exam: deferred Objective Data Vital Signs: Vital Signs - 24 hr Temp Pulse Resp BP BP Pulse Ox 12/06/23 06:58 98.2 F 66 16 155/72 95 12/06/23 04:00 98.4 F 68 18 135/67 96 12/06/23 01:40 98 12/06/23 00:00 96 12/05/23 23:55 98.2 F 82 18 156/85 98 12/05/23 23:28 98.2 F 82 18 156/85 98 12/05/23 23:00 87 167/102 99 12/05/23 22:30 84 18 152/106 99 12/05/23 22:00 86 19 165/97 99 12/05/23 21:30 87 19 175/101 97 12/05/23 21:00 94 H 22 166/110 99 12/05/23 20:56 90 17 181/104 99 12/05/23 20:55 92 H 10 L 98 12/05/23 20:50 92 H 10 L 99 12/05/23 20:42 94 H 20 100 12/05/23 20:00 94 H 18 171/100 99 12/05/23 19:30 91 H 14 165/103 96 12/05/23 19:00 92 H 19 167/98 95 12/05/23 18:30 88 18 168/103 93 L 12/05/23 18:00 86 17 156/101 96 12/05/23 17:30 87 16 170/90 95 12/05/23 17:00 170/89 92 L 12/05/23 16:30 82 17 177/100 92 L 12/05/23 16:12 88 18 176/113 95 12/05/23 14:30 191/107 12/05/23 14:22 82 17 187/107 97 12/05/23 14:21 98 12/05/23 14:20 99 12/05/23 14:10 98 12/05/23 14:03 99 12/05/23 13:30 187/102 12/05/23 13:00 78 15 185/101 98 12/05/23 12:30 77 16 188/137 99 12/05/23 12:20 80 16 180/107 99 12/05/23 12:02 98.1 F 80 17 184/102 98 Pain Assessment - Last Documented Pain Intensity 0 Intake and Output: Intake & Output 12/03/23 12/04/23 12/05/23 12/06/23 11:59 11:59 11:59 11:59 Intake Total 220 Balance 220 Weight 64.9 kg Lab Results: Lab Results-Last 24 Hours 12/05/23 12/05/23 12/05/23 Range/Units 12:42 12:48 12:48 WBC 7.8 (4.0-10.5) x10^3/uL RBC 4.22 (4.1-5.4) x10^6/uL Hgb 12.9 (12.0-16.0) g/dL Hct 38.0 (35-47) % MCV 90.0 (78-100) fL MCH 30.6 (26-32) pg MCHC 33.9 (32-36) g/dL RDW 11.9 (11.5-14.0) % Plt Count 340 (150-450) x10^3/uL MPV 8.8 (7.5-11.0) fL Gran % 88.8 H (36.0-66.0) % Immature Gran % (Auto) 0.3 (0.00-0.4) % Nucleat RBC Rel Count 0.0 (0.00-0.1) % Eos # (Auto) 0 (0-0.5) x10^3/uL Immature Gran # (Auto) 0.02 (0.00-0.03) x10^3u/L Absolute Lymphs (auto) 0.69 L (1.0-4.6) x10^3/uL Absolute Monos (auto) 0.13 (0.0-1.3) x10^3/uL Absolute Nucleated RBC 0.00 (0.00-0.01) x10^3u/L Lymphocytes % 8.9 L (24.0-44.0) % Monocytes % 1.7 (0.0-12.0) % Eosinophils % 0.0 (0.00-5.0) % Basophils % 0.3 (0.0-0.4) % Absolute Granulocytes 6.91 H (1.4-6.9) x10^3/uL Basophils # 0.02 (0-0.4) x10^3/uL Sodium 138 (135-145) mmol/L Potassium 4.1 (3.5-5.1) mmol/L Chloride 106 (98-107) mmol/L Carbon Dioxide 22 (22-30) mmol/L Anion Gap 14.3 (5-15) MEQ/L BUN 10 (7-17) mg/dL Creatinine 0.68 (0.52-1.04) mg/dL Estimated GFR 88.0 ML/MIN Glucose 151 H (74-106) mg/dL Hemoglobin A1c (4.5-6.0) % Lactic Acid 1.7 (0.4-2.0) Calcium 9.0 (8.4-10.2) mg/dL Total Bilirubin 0.80 (0.2-1.3) mg/dL AST 24 (14-36) U/L ALT 13 (0-35) U/L Alkaline Phosphatase 101 (38-126) U/L Troponin I (0.000-0.033) ng/mL Serum Total Protein 7.8 (6.3-8.2) g/dL Albumin 4.6 (3.5-5.0) g/dL Triglycerides (30-150) mg/dL Cholesterol (50-200) mg/dL LDL Cholesterol (30-100) mg/dL HDL Cholesterol (40-60) mg/dL Heart Disease Risk Ratio Amylase 58 (30-110) U/L Lipase 63 (23-300) U/L TSH 3rd Generation (0.470-4.680) mIU/L Urine Color (Yellow) Urine Appearance (Clear) Urine pH (4.6-8.0) Ur Specific [place] (1.005-1.030) Urine Protein (Negative) Urine Glucose (UA) (Negative) mg/dL Urine Ketones (Negative) Urine Blood (Negative) Urine Nitrite (Negative) Urine Bilirubin (Negative) Urine Urobilinogen (0.2) mg/dL Ur Leukocyte Esterase (Negative) U Hyaline Cast (Auto) (0-2) /LPF Urine Microscopic RBC (0-5) /HPF Urine Microscopic WBC (0-5) /HPF Ur Epithelial Cells (None Seen) /HPF Urine Bacteria (None Seen) /HPF Urine Culture Reflexed (NO) Influenza Type A Ag (NEGATIVE) Influenza Type B Ag (NEGATIVE) RSV (PCR) (NEGATIVE) SARS-CoV-2 (PCR) (NEGATIVE) Group A Strep Antibody (NEGATIVE) 12/05/23 12/05/23 12/05/23 Range/Units 12:48 12:50 12:50 WBC (4.0-10.5) x10^3/uL RBC (4.1-5.4) x10^6/uL Hgb (12.0-16.0) g/dL Hct (35-47) % MCV (78-100) fL MCH (26-32) pg MCHC (32-36) g/dL RDW (11.5-14.0) % Plt Count (150-450) x10^3/uL MPV (7.5-11.0) fL Gran % (36.0-66.0) % Immature Gran % (Auto) (0.00-0.4) % Nucleat RBC Rel Count (0.00-0.1) % Eos # (Auto) (0-0.5) x10^3/uL Immature Gran # (Auto) (0.00-0.03) x10^3u/L Absolute Lymphs (auto) (1.0-4.6) x10^3/uL Absolute Monos (auto) (0.0-1.3) x10^3/uL Absolute Nucleated RBC (0.00-0.01) x10^3u/L Lymphocytes % (24.0-44.0) % Monocytes % (0.0-12.0) % Eosinophils % (0.00-5.0) % Basophils % (0.0-0.4) % Absolute Granulocytes (1.4-6.9) x10^3/uL Basophils # (0-0.4) x10^3/uL Sodium (135-145) mmol/L Potassium (3.5-5.1) mmol/L Chloride (98-107) mmol/L Carbon Dioxide (22-30) mmol/L Anion Gap (5-15) MEQ/L BUN (7-17) mg/dL Creatinine (0.52-1.04) mg/dL Estimated GFR ML/MIN Glucose (74-106) mg/dL Hemoglobin A1c (4.5-6.0) % Lactic Acid (0.4-2.0) Calcium (8.4-10.2) mg/dL Total Bilirubin (0.2-1.3) mg/dL AST (14-36) U/L ALT (0-35) U/L Alkaline Phosphatase (38-126) U/L Troponin I < 0.012 (0.000-0.033) ng/mL Serum Total Protein (6.3-8.2) g/dL Albumin (3.5-5.0) g/dL Triglycerides (30-150) mg/dL Cholesterol (50-200) mg/dL LDL Cholesterol (30-100) mg/dL HDL Cholesterol (40-60) mg/dL Heart Disease Risk Ratio Amylase (30-110) U/L Lipase (23-300) U/L TSH 3rd Generation (0.470-4.680) mIU/L Urine Color (Yellow) Urine Appearance (Clear) Urine pH (4.6-8.0) Ur Specific [place] (1.005-1.030) Urine Protein (Negative) Urine Glucose (UA) (Negative) mg/dL Urine Ketones (Negative) Urine Blood (Negative) Urine Nitrite (Negative) Urine Bilirubin (Negative) Urine Urobilinogen (0.2) mg/dL Ur Leukocyte Esterase (Negative) U Hyaline Cast (Auto) (0-2) /LPF Urine Microscopic RBC (0-5) /HPF Urine Microscopic WBC (0-5) /HPF Ur Epithelial Cells (None Seen) /HPF Urine Bacteria (None Seen) /HPF Urine Culture Reflexed (NO) Influenza Type A Ag NEGATIVE (NEGATIVE) Influenza Type B Ag NEGATIVE (NEGATIVE) RSV (PCR) NEGATIVE (NEGATIVE) SARS-CoV-2 (PCR) NEGATIVE (NEGATIVE) Group A Strep Antibody NOT DETECTED (NEGATIVE) 12/05/23 12/05/23 12/05/23 Range/Units 13:51 16:18 20:03 WBC (4.0-10.5) x10^3/uL RBC (4.1-5.4) x10^6/uL Hgb (12.0-16.0) g/dL Hct (35-47) % MCV (78-100) fL MCH (26-32) pg MCHC (32-36) g/dL RDW (11.5-14.0) % Plt Count (150-450) x10^3/uL MPV (7.5-11.0) fL Gran % (36.0-66.0) % Immature Gran % (Auto) (0.00-0.4) % Nucleat RBC Rel Count (0.00-0.1) % Eos # (Auto) (0-0.5) x10^3/uL Immature Gran # (Auto) (0.00-0.03) x10^3u/L Absolute Lymphs (auto) (1.0-4.6) x10^3/uL Absolute Monos (auto) (0.0-1.3) x10^3/uL Absolute Nucleated RBC (0.00-0.01) x10^3u/L Lymphocytes % (24.0-44.0) % Monocytes % (0.0-12.0) % Eosinophils % (0.00-5.0) % Basophils % (0.0-0.4) % Absolute Granulocytes (1.4-6.9) x10^3/uL Basophils # (0-0.4) x10^3/uL Sodium (135-145) mmol/L Potassium (3.5-5.1) mmol/L Chloride (98-107) mmol/L Carbon Dioxide (22-30) mmol/L Anion Gap (5-15) MEQ/L BUN (7-17) mg/dL Creatinine (0.52-1.04) mg/dL Estimated GFR ML/MIN Glucose (74-106) mg/dL Hemoglobin A1c (4.5-6.0) % Lactic Acid (0.4-2.0) Calcium (8.4-10.2) mg/dL Total Bilirubin (0.2-1.3) mg/dL AST (14-36) U/L ALT (0-35) U/L Alkaline Phosphatase (38-126) U/L Troponin I < 0.012 < 0.012 (0.000-0.033) ng/mL Serum Total Protein (6.3-8.2) g/dL Albumin (3.5-5.0) g/dL Triglycerides (30-150) mg/dL Cholesterol (50-200) mg/dL LDL Cholesterol (30-100) mg/dL HDL Cholesterol (40-60) mg/dL Heart Disease Risk Ratio Amylase (30-110) U/L Lipase (23-300) U/L TSH 3rd Generation (0.470-4.680) mIU/L Urine Color Yellow (Yellow) Urine Appearance Clear (Clear) Urine pH 7.5 (4.6-8.0) Ur Specific [place] <=1.005 (1.005-1.030) Urine Protein Negative (Negative) Urine Glucose (UA) Negative (Negative) mg/dL Urine Ketones 15 A (Negative) Urine Blood Negative (Negative) Urine Nitrite Negative (Negative) Urine Bilirubin Negative (Negative) Urine Urobilinogen 0.2 (0.2) mg/dL Ur Leukocyte Esterase Negative (Negative) U Hyaline Cast (Auto) NONE SEEN (0-2) /LPF Urine Microscopic RBC 0-2 (0-5) /HPF Urine Microscopic WBC 0-2 (0-5) /HPF Ur Epithelial Cells None Seen (None Seen) /HPF Urine Bacteria None Seen (None Seen) /HPF Urine Culture Reflexed NO (NO) Influenza Type A Ag (NEGATIVE) Influenza Type B Ag (NEGATIVE) RSV (PCR) (NEGATIVE) SARS-CoV-2 (PCR) (NEGATIVE) Group A Strep Antibody (NEGATIVE) 12/06/23 12/06/23 12/06/23 Range/Units 04:30 04:30 04:30 WBC 9.7 (4.0-10.5) x10^3/uL RBC 3.84 L (4.1-5.4) x10^6/uL Hgb 11.9 L (12.0-16.0) g/dL Hct 34.8 L (35-47) % MCV 90.6 (78-100) fL MCH 31.0 (26-32) pg MCHC 34.2 (32-36) g/dL RDW 12.2 (11.5-14.0) % Plt Count 349 (150-450) x10^3/uL MPV 8.9 (7.5-11.0) fL Gran % 63.7 (36.0-66.0) % Immature Gran % (Auto) 0.2 (0.00-0.4) % Nucleat RBC Rel Count 0.0 (0.00-0.1) % Eos # (Auto) 0.04 (0-0.5) x10^3/uL Immature Gran # (Auto) 0.02 (0.00-0.03) x10^3u/L Absolute Lymphs (auto) 2.74 (1.0-4.6) x10^3/uL Absolute Monos (auto) 0.68 (0.0-1.3) x10^3/uL Absolute Nucleated RBC 0.00 (0.00-0.01) x10^3u/L Lymphocytes % 28.2 (24.0-44.0) % Monocytes % 7.0 (0.0-12.0) % Eosinophils % 0.4 (0.00-5.0) % Basophils % 0.5 (0.0-0.4) % Absolute Granulocytes 6.17 (1.4-6.9) x10^3/uL Basophils # 0.05 (0-0.4) x10^3/uL Sodium 137 (135-145) mmol/L Potassium 3.4 L (3.5-5.1) mmol/L Chloride 107 (98-107) mmol/L Carbon Dioxide 22 (22-30) mmol/L Anion Gap 11.3 (5-15) MEQ/L BUN 9 (7-17) mg/dL Creatinine 0.82 (0.52-1.04) mg/dL Estimated GFR 72.3 ML/MIN Glucose 103 (74-106) mg/dL Hemoglobin A1c 5.75 (4.5-6.0) % Lactic Acid (0.4-2.0) Calcium 8.9 (8.4-10.2) mg/dL Total Bilirubin (0.2-1.3) mg/dL AST (14-36) U/L ALT (0-35) U/L Alkaline Phosphatase (38-126) U/L Troponin I (0.000-0.033) ng/mL Serum Total Protein (6.3-8.2) g/dL Albumin (3.5-5.0) g/dL Triglycerides 80 (30-150) mg/dL Cholesterol 186 (50-200) mg/dL LDL Cholesterol 113 H (30-100) mg/dL HDL Cholesterol 48 (40-60) mg/dL Heart Disease Risk Ratio 4.0 Amylase (30-110) U/L Lipase (23-300) U/L TSH 3rd Generation 1.423 (0.470-4.680) mIU/L Urine Color (Yellow) Urine Appearance (Clear) Urine pH (4.6-8.0) Ur Specific [place] (1.005-1.030) Urine Protein (Negative) Urine Glucose (UA) (Negative) mg/dL Urine Ketones (Negative) Urine Blood (Negative) Urine Nitrite (Negative) Urine Bilirubin (Negative) Urine Urobilinogen (0.2) mg/dL Ur Leukocyte Esterase (Negative) U Hyaline Cast (Auto) (0-2) /LPF Urine Microscopic RBC (0-5) /HPF Urine Microscopic WBC (0-5) /HPF Ur Epithelial Cells (None Seen) /HPF Urine Bacteria (None Seen) /HPF Urine Culture Reflexed (NO) Influenza Type A Ag (NEGATIVE) Influenza Type B Ag (NEGATIVE) RSV (PCR) (NEGATIVE) SARS-CoV-2 (PCR) (NEGATIVE) Group A Strep Antibody (NEGATIVE) 12/06/23 Range/Units 10:30 WBC (4.0-10.5) x10^3/uL RBC (4.1-5.4) x10^6/uL Hgb (12.0-16.0) g/dL Hct (35-47) % MCV (78-100) fL MCH (26-32) pg MCHC (32-36) g/dL RDW (11.5-14.0) % Plt Count (150-450) x10^3/uL MPV (7.5-11.0) fL Gran % (36.0-66.0) % Immature Gran % (Auto) (0.00-0.4) % Nucleat RBC Rel Count (0.00-0.1) % Eos # (Auto) (0-0.5) x10^3/uL Immature Gran # (Auto) (0.00-0.03) x10^3u/L Absolute Lymphs (auto) (1.0-4.6) x10^3/uL Absolute Monos (auto) (0.0-1.3) x10^3/uL Absolute Nucleated RBC (0.00-0.01) x10^3u/L Lymphocytes % (24.0-44.0) % Monocytes % (0.0-12.0) % Eosinophils % (0.00-5.0) % Basophils % (0.0-0.4) % Absolute Granulocytes (1.4-6.9) x10^3/uL Basophils # (0-0.4) x10^3/uL Sodium (135-145) mmol/L Potassium 3.8 (3.5-5.1) mmol/L Chloride (98-107) mmol/L Carbon Dioxide (22-30) mmol/L Anion Gap (5-15) MEQ/L BUN (7-17) mg/dL Creatinine (0.52-1.04) mg/dL Estimated GFR ML/MIN Glucose (74-106) mg/dL Hemoglobin A1c (4.5-6.0) % Lactic Acid (0.4-2.0) Calcium (8.4-10.2) mg/dL Total Bilirubin (0.2-1.3) mg/dL AST (14-36) U/L ALT (0-35) U/L Alkaline Phosphatase (38-126) U/L Troponin I (0.000-0.033) ng/mL Serum Total Protein (6.3-8.2) g/dL Albumin (3.5-5.0) g/dL Triglycerides (30-150) mg/dL Cholesterol (50-200) mg/dL LDL Cholesterol (30-100) mg/dL HDL Cholesterol (40-60) mg/dL Heart Disease Risk Ratio Amylase (30-110) U/L Lipase (23-300) U/L TSH 3rd Generation (0.470-4.680) mIU/L Urine Color (Yellow) Urine Appearance (Clear) Urine pH (4.6-8.0) Ur Specific [place] (1.005-1.030) Urine Protein (Negative) Urine Glucose (UA) (Negative) mg/dL Urine Ketones (Negative) Urine Blood (Negative) Urine Nitrite (Negative) Urine Bilirubin (Negative) Urine Urobilinogen (0.2) mg/dL Ur Leukocyte Esterase (Negative) U Hyaline Cast (Auto) (0-2) /LPF Urine Microscopic RBC (0-5) /HPF Urine Microscopic WBC (0-5) /HPF Ur Epithelial Cells (None Seen) /HPF Urine Bacteria (None Seen) /HPF Urine Culture Reflexed (NO) Influenza Type A Ag (NEGATIVE) Influenza Type B Ag (NEGATIVE) RSV (PCR) (NEGATIVE) SARS-CoV-2 (PCR) (NEGATIVE) Group A Strep Antibody (NEGATIVE) Radiology Exams: Radiology Procedures Category Date Time Status ABDOMEN AND PELVIS W/0 CONTRAS [CT] Stat Exams 12/05/23 12:30 Completed CHEST 2 VIEWS (PA AND LAT) Stat Exams 12/05/23 12:[address] ANGIOGRAPHY NECK [CT] Stat Exams 12/05/23 18:51 Completed CTA HEAD W AND/OR WO CONTRAST [CT] Stat Exams 12/05/23 18:50 Completed ECHO W/2D AND DOPPLER [US] Routine Exams 12/06/23 02:02 Taken MRI BRAIN W/O CONTRAST [MRI] Stat Exams 12/05/23 12:31 Completed Multi-Disciplinary Progress Notes: Multi-Disciplinary Progress Notes 12/06/23 10:35 Case Management Note by Sofiya Payne REFERRAL FAXED TO [facility]. THEY WILL NOTIFIED AT TIME OF DC AT [phone]. THEY WILL NEED FAXED DC INSTRUCTIONS, DC MED LIST AND DC SUMMARY (IF AVAILABLE) TO [phone] Initialized on 12/06/23 10:35 - END OF NOTE 12/06/23 01:43 Respiratory Note by Isabella Hamm Pt is requesting to take O2 off. SpO2 on 2L nasal cannula was 98%. SpO2 on room air was 92%. RN notified of decrease in O2. Initialized on 12/06/23 01:43 - END OF NOTE Assessment/Plan (1) Cerebellar stroke Current Visit: Yes Status: Acute Assessment & Plan: - Lipid panel- LDL 113 - Start high intensity statin - EKG - ASA 81mg daily - A1C 5.75 - PT/ST/OT - Tele - neuro checks - meclizine prn - Allow for permissive HTN only treat if BP > 220/110 for 48-72 hours- ADULT [employer]OLE [employer]ER meds stopped - Neurology consult - CTA head:12/04 Impression: 1. Motion artifact. 2. 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 Remaining CTA head with contrast exam is grossly negative. - MRI 12/04 Impression: 1. Multifocal small patchy acute ischemia left cerebellum. No acute hemorrhage/mass effect. 2. Atrophy and degenerative micro-ischemia within normal limits for patient's age. - CT angiography 12/04 Impression: 1. Normal CTA neck with contrast exam. 2. Incidental osteopenia and minimal multilevel cervical degenerative spondylosis -Echo: EF 72% per library technician - awaiting further neurology recs after review of MRI Code(s): I63.9 - CEREBRAL INFARCTION, UNSPECIFIED (2) Vomiting Current Visit: Yes Status: Acute Assessment & Plan: - 2:2 stroke/ dizziness - antivert PRN - Zofran PRN - CT abd/ pelvis: Impression: 1. New tiny gallbladder sludge/gravel. If there is clinical concern, sonogram may yield further information. 2. Again chronic findings including colonic diverticulosis, bilateral renal cysts, arteriosclerotic disease, and chronic bony findings - F/u Op with GS for any concerns - denies Abd. pain at this time. Code(s): R11.10 - VOMITING, UNSPECIFIED (3) Orthostatic hypotension Current Visit: Yes Status: Acute Assessment & Plan: - Supine 173/79, Sitting 156/61, standing 134/68 - + associated dizziness, and blurred vision. - PT/OT eval - Home health care - Most likely related to HTN - ADELINE zimmer Code(s): I95.1 - ORTHOSTATIC HYPOTENSION (4) Dizziness Current Visit: Yes Status: Acute Assessment & Plan: - PT/OT eval - 2:2 stroke - will need Op PT - HHC - CXR: 12/04 Impression: Continued nonacute hyperinflated chest with chronic features Code(s): R42 - DIZZINESS AND GIDDINESS (5) Hypertension Current Visit: No Status: Acute Assessment & Plan: - allow for permissive HTN d/t stroke Code(s): I10 - ESSENTIAL (PRIMARY) HYPERTENSION (6) Hypothyroidism Current Visit: Yes Status: Chronic Assessment & Plan: - Continue home meds - TSH 1.423 Code(s): E03.9 - HYPOTHYROIDISM, UNSPECIFIED (7) Hypokalemia Current Visit: Yes Status: Acute Assessment & Plan: - K+ 3.4- replaced, recheck 3.8- trend VTE: SCD'S Next of kin: Leif Moreno [phone] D/C plan- tomorrow Code status: Full Code(s): E87.6 - HYPOKALEMIA
[2023-12-06] MEDS: LIPITOR 40MG PO STA (12:52)
--- NOTE | 2023-12-07 05:19 | PCM.NOTE ---
Date and Time: 12/07/23512 Subjective Assessment: 78 year old female admitted 12/05/23 with MRI confirmed cerebellar stroke after experiencing a 5 day history of nausea, vomiting, diarrhea, and blurry vision, and dizziness. Neurology consulted with recommendations for 81mg aspirin. She has also been prescribed a high intensity statin. Echo is pending read. 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 She declines placement and would like to discharge home with [facility] which will also provide vestibular PT. Objective Data Vital Signs: Vital Signs - 24 hr Temp Pulse Resp BP Pulse Ox 12/07/23 04:00 98.7 F 52 L 16 126/64 97 12/07/23 00:00 98.0 F 65 17 158/75 95 12/06/23 19:57 98.6 F 71 16 135/66 96 12/06/23 19:35 93 L 12/06/23 16:00 99.7 F 63 16 157/74 93 L 12/06/23 11:59 97.7 F 72 16 134/65 96 12/06/23 06:58 98.2 F 66 16 155/72 95 Pain Assessment - Last Documented Pain Intensity 0 Intake and Output: Intake & Output 12/04/23 12/05/23 12/06/23 12/07/23 11:59 11:59 11:59 11:59 Intake Total 220 960 Balance 220 960 Weight 64.9 kg Lab Results: Lab Results-Last 24 Hours 12/06/23 12/06/23 12/06/23 Range/Units 04:30 04:30 10:30 Sodium 137 (135-145) mmol/L Potassium 3.4 L 3.8 (3.5-5.1) mmol/L Chloride 107 (98-107) mmol/L Carbon Dioxide 22 (22-30) mmol/L Anion Gap 11.3 (5-15) MEQ/L BUN 9 (7-17) mg/dL Creatinine 0.82 (0.52-1.04) mg/dL Estimated GFR 72.3 ML/MIN Glucose 103 (74-106) mg/dL Hemoglobin A1c 5.75 (4.5-6.0) % Calcium 8.9 (8.4-10.2) mg/dL Triglycerides 80 (30-150) mg/dL Cholesterol 186 (50-200) mg/dL LDL Cholesterol 113 H (30-100) mg/dL HDL Cholesterol 48 (40-60) mg/dL Heart Disease Risk Ratio 4.0 TSH 3rd Generation 1.423 (0.470-4.680) mIU/L Radiology Exams: Radiology Procedures Category Date Time Status ABDOMEN AND PELVIS W/0 CONTRAS [CT] Stat Exams 12/05/23 12:30 Completed CHEST 2 VIEWS (PA AND LAT) Stat Exams 12/05/23 12:[address] ANGIOGRAPHY NECK [CT] Stat Exams 12/05/23 18:51 Completed CTA HEAD W AND/OR WO CONTRAST [CT] Stat Exams 12/05/23 18:50 Completed ECHO W/2D AND DOPPLER [US] Routine Exams 12/06/23 02:02 Taken MRI BRAIN W/O CONTRAST [MRI] Stat Exams 12/05/23 12:31 Completed Multi-Disciplinary Progress Notes: Multi-Disciplinary Progress Notes 12/06/23 18:39 OT Plan of Care Note by Mariama Fernandez OT Eval OT Inpatient Eval and POC Start: 12/06/23 02:01 Freq: ONCE Status: Active Protocol: Created 12/06/23 02:04 PS (Rec: 12/06/23 02:04 PS [id number]) Document 12/06/23 18:17 KA (Rec: 12/06/23 18:20 KA [id number]) OT Evaluation Subjective Patient reports increased dizziness upon evaluation, but agreeable to session. PT in room completing orthostatic vitals (see Negin Cooper's note for readings). Co-evaluation completed to ensure patient safety secondary to dizziness and recent fall at home. Pertinent Past Medical History Current: Patient fell 7 days ago and hit head, and went through OSH for evaluation with no injury noted. Patient continued with nausea and severe dizziness. Came to this hospital due to worsening symptoms. Work up (MRI) indicated left cerebellar CVA. 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 She walked with a cane and independent with laundry, cleaning, meal prep, and all ADLs. Equipment at Home Prior to Admission Cane,Raised Toilet Seat,Shower Chair Home Setup [id number] Date 12/06/23 Feeding WFL Comment Set Up assist Grooming Impaired Comment Min assist (due to dizziness) Bathing Impaired Comment Mod assist Dressing Impaired Comment UB: Min assist LB: Mod assist Toileting Impaired Comment SBA Bed Mobility Impaired Comment Utilizing hand rails, HOB elevated Min assist (hand support) Toilet Transfers Impaired Comment CGA Functional Transfers Impaired Comment CGA/Min assist Range of Motion WFL Coordination WFL UE ISABEL: WFL LE ISABEL: WFL finger to nose coordination: WFL Functional Strength Generalized weakness to BUE ( related to nausea and dizziness likely); increased right master electrician strength weakness compared to left master electrician strength . Patient is right hand dominant. Right and Left shoudler MMT: 4 -/5 Right and left elbow MMT: 4/5 Functional Endurance poor (+); patient only able to tolerate bed mobility, approximatley 6 feet of functional mobility, and toileting task. Patient did report feeling better ( regarding dizziness) after light movement and sitting up in chair. Cognition alert and oriented x 4 Pain No reported pain during session Objective Data/Standardized Assessment(s Hooks index of [place] in ) ADLs: 3/6 indiciating moderate level of assistance required for ADLs. Comment Patient's dizziness did not improve with eyes closed, increased dizziness with lateral head movement (severe) . OT Plan Of Care Date of Evaluation 12/06/23 Treatment Diagnosis Stroke Teaching Recipient Patient Patient is Aware of Diagnosis and Yes Prognosis Patient is receptive to Plan of Care and Yes contributory towards OT goals Functional Problem List Desiree presents with mild right master electrician strength weakness, significant dizziness limiting overall balance, generalized weakness, and decreased activity tolerance limiting independence with ADLS and functional transfers. Therapuetic Interventions ADL, therapeutic activity, therapeutic exercise, manual therapy Functional Goals of Treatment 1.) By 12-13-23, Desiree will demonstrate independence with HEP, Activity pacing/energy conservation strategies, and discharge plans in order to facilitate safe d/c. 2) Desiree will engage in 10 minute ADL or functional activity task with SBA in order to faciltiate safe d/c home, by 12-13-23. 3) By 12-13-23, Desiree will demonstrate improved BUE strength to 4+/5 in order to improve independence with ADLS . Frequency/Duration 5x/week Rehabilitation Potential for Goals/ Good Barriers to Progress Discharge Recommendations/Plan OT recommends further skilled therapy with recommendation pending further progress. Patient may benefit from swing bed stay to address strength, balance, functional transfers , and ADLs; however , if patient returns home then highly recommend HHT. Initialized on 12/06/23 18:39 - END OF NOTE 12/06/23 10:35 Case Management Note by Sofiya Payne REFERRAL FAXED TO [facility]. THEY WILL NOTIFIED AT TIME OF DC AT [phone]. THEY WILL NEED FAXED DC INSTRUCTIONS, DC MED LIST AND DC SUMMARY (IF AVAILABLE) TO [phone] Initialized on 12/06/23 10:35 - END OF NOTE Assessment/Plan (1) Cerebellar stroke Current Visit: Yes Status: Acute Assessment & Plan: -MRI noting multifocal small patchy acute ischemia left cerebellum. No acute hemorrhage/mass effect -CTA head with minimal ateriosclerotic disease -CTA neck normal -ECHO: unoffical read of 57% EF per r&d lab technician -ASA/High intensity statin initiated Code(s): I63.9 - CEREBRAL INFARCTION, UNSPECIFIED (2) Dizziness Current Visit: Yes Status: Acute Assessment & Plan: - PT/OT eval - 2:2 stroke - will need Op PT - [facility] - CXR: 12/04 Impression: Continued nonacute hyperinflated chest with chronic features Code(s): R42 - DIZZINESS AND GIDDINESS (3) Hypokalemia Current Visit: Yes Status: Acute Assessment & Plan: -Resolved Code(s): E87.6 - HYPOKALEMIA (4) Orthostatic hypotension Current Visit: Yes Status: Acute Assessment & Plan: - Supine 173/79, Sitting 156/61, standing 134/68 - + associated dizziness, and blurred vision. - PT/OT eval - Home health care - Most likely related to HTN - ADELINE zimmer Code(s): I95.1 - ORTHOSTATIC HYPOTENSION (5) Vomiting Current Visit: Yes Status: Acute Assessment & Plan: - 2:2 stroke/ dizziness - antivert PRN - Zofran PRN - CT abd/ pelvis: Impression: 1. New tiny gallbladder sludge/gravel. If there is clinical concern, sonogram may yield further information. 2. Again chronic findings including colonic diverticulosis, bilateral renal cysts, arteriosclerotic disease, and chronic bony findings - F/u Op with GS for any concerns - denies Abd. pain at this time. Code(s): R11.10 - VOMITING, UNSPECIFIED (6) Hypothyroidism Current Visit: Yes Status: Chronic Assessment & Plan: - 2:2 stroke/ dizziness - antivert PRN - Zofran PRN - CT abd/ pelvis: Impression: 1. New tiny gallbladder sludge/gravel. If there is clinical concern, sonogram may yield further information. 2. Again chronic findings including colonic diverticulosis, bilateral renal cysts, arteriosclerotic disease, and chronic bony findings - F/u Op with GS for any concerns - denies Abd. pain at this time. Code(s): E03.9 - HYPOTHYROIDISM, UNSPECIFIED (7) Hypertension Current Visit: No Status: Acute Assessment & Plan: - allow for permissive HTN d/t stroke VTE: SCD'S Next of kin: Leif Moreno [phone] D/C plan- tomorrow Code status: Full Code(s): I10 - ESSENTIAL (PRIMARY) HYPERTENSION
[2023-12-07] MEDS: SYNTHROID 25 MCG PO SCH (06:47)
[2023-12-07] MEDS: NON-FORMULARY ITEM PO SCH (06:49)
[2023-12-07 06:55] VITALS: O2SAT 95
[2023-12-07 11:25] VITALS: BP 152/70; PULSE 52; RESP 23; TEMP 97.7
--- NOTE | 2023-12-07 11:49 | PCM.DS ---
Discharge Summary Date of Admission: 12/05/23 23:20 Date of Discharge: 12/07/23 Admitting Physician: HUMZA GODFREY MD Consults: Consults on Case 12/06/23 12:48 Consult Neurology ROUTINE Primary Care Provider: JAMES TORRES DO Allergies Allergies amoxicillin [From Augmentin] Allergy (Intermediate, Verified 12/05/23 12:09) Swelling of Tongue and Lips clavulanic acid [From Augmentin] Allergy (Intermediate, Verified 12/05/23 12:09) Swelling of Tongue and Lips moxifloxacin Allergy (Intermediate, Verified 12/05/23 12:09) tongue swelling and dysphagia cephalexin monohydrate [From Keflex] Allergy (Verified 12/05/23 12:09) Hives erythromycin base [Erythromycin Base] Allergy (Verified 12/05/23 12:09) Hives minocycline Adverse Reaction (Intermediate, Verified 12/05/23 12:09) dizziness Hospital Summary - Hospital Course Hospital Course: 78 year old female admitted 12/05/23 with MRI confirmed cerebellar stroke after experiencing a 5 day history of nausea, vomiting, diarrhea, and blurry vision, and dizziness. Neurology consulted with recommendations for 81mg aspirin. She has also been prescribed a high intensity statin. Echo is pending read. 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 She declines placement and would like to discharge home with [facility] which will also provide vestibular PT. PT states patient is now at baseline and stable for d/c with [facility]. Discharge Note New Diagnosis: Cerebellar stroke New Medications: ASA/STATIN/meclizine Follow Up: neuro/PC Latest Assessment & Plan (1) Cerebellar stroke Current Visit: Yes Status: Acute Assessment & Plan: -MRI noting multifocal small patchy acute ischemia left cerebellum. No acute hemorrhage/mass effect -CTA head with minimal ateriosclerotic disease -CTA neck normal -ECHO: unoffical read of 57% EF per patient support tech -ASA/High intensity statin initiated Code(s): I63.9 - CEREBRAL INFARCTION, UNSPECIFIED (2) Dizziness Current Visit: Yes Status: Acute Assessment & Plan: - PT/OT eval - 2:2 stroke - will need Op PT - [facility] - CXR: 12/04 Impression: Continued nonacute hyperinflated chest with chronic features Code(s): R42 - DIZZINESS AND GIDDINESS (3) Hypokalemia Current Visit: Yes Status: Acute Assessment & Plan: -Resolved Code(s): E87.6 - HYPOKALEMIA (4) Orthostatic hypotension Current Visit: Yes Status: Acute Assessment & Plan: - Supine 173/79, Sitting 156/61, standing 134/68 - + associated dizziness, and blurred vision. - PT/OT eval - Home health care - Most likely related to HTN - ADELINE zimmer Code(s): I95.1 - ORTHOSTATIC HYPOTENSION (5) Vomiting Current Visit: Yes Status: Acute Assessment & Plan: - 2:2 stroke/ dizziness - antivert PRN - Zofran PRN - CT abd/ pelvis: Impression: 1. New tiny gallbladder sludge/gravel. If there is clinical concern, sonogram may yield further information. 2. Again chronic findings including colonic diverticulosis, bilateral renal cysts, arteriosclerotic disease, and chronic bony findings - F/u Op with GS for any concerns - denies Abd. pain at this time. Code(s): R11.10 - VOMITING, UNSPECIFIED (6) Hypothyroidism Current Visit: Yes Status: Chronic Assessment & Plan: -continue home meds Code(s): E03.9 - HYPOTHYROIDISM, UNSPECIFIED (7) Hypertension Current Visit: No Status: Acute Assessment & Plan: - allow for permissive HTN d/t stroke I spent 35 minutes [id number] with the patient on the day of discharge performing discharge exam, discussing hospital stay and discharge instructions with patient and caregivers, preparation of discharge records, prescriptions & r eferral forms and addressing any questions/concerns the patient had as documented above. - Vitals & Intake/Output Vital Signs: Vital Signs Temperature 97.7 F 12/07/23 11:24 Pulse Rate 52 L 12/07/23 11:24 Respiratory Rate 23 12/07/23 11:24 Blood Pressure 152/70 12/07/23 11:24 O2 Sat by Pulse Oximetry 95 12/07/23 11:24 Intake & Output: Intake & Output 12/04/23 12/05/23 12/06/23 12/07/23 11:59 11:59 11:59 11:59 Intake Total 220 1500 Balance 220 1500 Weight 64.9 kg - Lab Result Diagrams: 12/06/23 04:30 12/06/23 10:30 - Radiology Exams Ordered Rad Exams-Entire Visit: Radiology Procedures Category Date Time Status ABDOMEN AND PELVIS W/0 CONTRAS [CT] Stat Exams 12/05/23 12:30 Completed CHEST 2 VIEWS (PA AND LAT) Stat Exams 12/05/23 12:[address] ANGIOGRAPHY NECK [CT] Stat Exams 12/05/23 18:51 Completed CTA HEAD W AND/OR WO CONTRAST [CT] Stat Exams 12/05/23 18:50 Completed ECHO W/2D AND DOPPLER [US] Routine Exams 12/06/23 02:02 Taken MRI BRAIN W/O CONTRAST [MRI] Stat Exams 12/05/23 12:31 Completed - Procedures and Test Procedures and Tests throughout Hospitalization: Therapy Orders & Screens 12/06/23 00:20 ST Screen per Nursing Assess ONCE Comment: Protocol Order Physician Instructions: Greater than [address] Admission Screening Reason For Exam: Triggered on Admission Diagnosis: stroke CVA/Dyshpagia/Aphasia: Yes Cognitive Deficits: No Dehydration/Nutrition Deficit: No Reflux: No Oral-Motor Difficulties: No Pneumonia: No Detention Resident: No Total Points: 5 12/06/23 02:01 PT Eval & Treat (MD Order) ONCE Reason for Eval:: stroke Diagnosis: stroke OT Eval and Treat (MD Order) ONCE Comment: Physician Instructions: Reason For Exam: Diagnosis: stroke Discharge Exam General Appearance: no apparent distress Neurologic Exam: alert, oriented x 3, cooperative Eye Exam: PERRL Ears, Nose, Throat Exam: normal ENT inspection Neck Exam: normal inspection Respiratory Exam: normal breath sounds, lungs clear Cardiovascular Exam: regular rate/rhythm, normal heart sounds Gastrointestinal/Abdomen Exam: soft, normal bowel sounds Pelvic Exam: deferred Rectal Exam: deferred Back Exam: normal inspection Extremity Exam: normal inspection Skin Exam: normal color Final Diagnosis/Problem List - Final Discharge Diagnosis/Problem (1) Cerebellar stroke Current Visit: Yes Status: Acute Code(s): I63.9 - CEREBRAL INFARCTION, UNSPECIFIED (2) Dizziness Current Visit: Yes Status: Chronic Code(s): R42 - DIZZINESS AND GIDDINESS (3) Hypokalemia Current Visit: Yes Status: Resolved Code(s): E87.6 - HYPOKALEMIA (4) Orthostatic hypotension Current Visit: Yes Status: Chronic Code(s): I95.1 - ORTHOSTATIC HYPOTENSION (5) Vomiting Current Visit: Yes Status: Resolved Code(s): R11.10 - VOMITING, UNSPECIFIED (6) Hypothyroidism Current Visit: Yes Status: Chronic Code(s): E03.9 - HYPOTHYROIDISM, UNSPECIFIED (7) Hypertension Current Visit: No Status: Acute Code(s): I10 - ESSENTIAL (PRIMARY) HYPERTENSION - Discharge Disposition: Home, Self-Care Condition: Stable Prescriptions: New Meclizine HCl 25 mg [Antivert 25 mg] 25 mg PO Q6H PRN PRN 30 Days #120 tablet PRN Reason: Dizziness Aspirin EC 81 mg [Ecotrin 81 mg] 81 mg PO QAM 30 Days #30 tablet Atorvastatin Calcium [Lipitor 40Mg] 80 mg PO HS 30 Days #30 tablet Continue Amlodipine Besylate [Norvasc] 2.5 mg PO DAILY PRN PRN Reason: Hypertension Losartan Potassium 50 mg [Cozaar 50 MG] 50 mg PO BID Liothyronine Sodium 10 mcg PO DAILY Levothyroxine Sodium 25 Mcg [Synthroid 25 Mcg] 25 mcg PO DAILY Instructions: Stroke (DC) Additional Instructions: [facility]LL[facility]ALKER ONE DAY NEXT WEEK. USE THE WALKER THAT YOU HAVE IN YOUR HOME UNTIL THIS CAN BE DELIVERED. Follow up with: JAMES TORRES DO [Primary Care Provider] - 12/13/23 10:00 am TRANG JUÁREZ [CONSULTING PHYSICIAN] - Office will call patient (POST OP EMERGENT PAPERWORK FAXED TO [phone])
[2023-12-07] MEDS ORDERED: LIPITOR 40MG PO SCH (22:00)
== END 2023-12-07 16:14 | disposition home or self-care (01) ==
LOC: ED 12:01 → MED SURG 23:20
PROVIDERS: ADMIT Internal Medicine; ATTEND Internal Medicine
DX: I63.9 Cerebral infarction, unspecified (principal); R42 Dizziness and giddiness; E87.6 Hypokalemia; I95.1 Orthostatic hypotension; R11.10 Vomiting, unspecified; E03.9 Hypothyroidism, unspecified; I10 Essential (primary) hypertension; Z79.899 Other long term (current) drug therapy
CPT/HCPCS: 0241U; 36000; 36415; 70496; 70498; 70551; 71046; 74176; 80048; 80053; 80061; 81001; 82150; 83036; 83605; 83690; 83721; 84132; 84443; 84484; 85025; 87651; 93005; 93268; 93306; 94762; 96374; 97161; 97165; 97530; 99285; G0378; Q3014; J1650; J2405; A9270-GY

== ENCOUNTER 2024-02-17 05:29 | Observation (INO) | payer MEDICARE ==
--- NOTE | 2024-02-17 05:37 | ERPHSYRPT ---
<KATHERINE MEANS - Last Filed: 02/17/24 07:42> - History of Present Illness Time Seen by Provider: 02/17/24 05:35 Allergies/Adverse Reactions: amoxicillin [From Augmentin] Allergy (Intermediate, Verified 02/17/24 05:53) Swelling of Tongue and Lips cephalexin monohydrate [From Keflex] Allergy (Intermediate, Verified 02/17/24 05:53) Hives clavulanic acid [From Augmentin] Allergy (Intermediate, Verified 02/17/24 05:53) Swelling of Tongue and Lips erythromycin base [Erythromycin Base] Allergy (Intermediate, Verified 02/17/24 05:53) Hives moxifloxacin Allergy (Intermediate, Verified 02/17/24 05:53) tongue swelling and dysphagia minocycline Adverse Reaction (Intermediate, Verified 02/17/24 05:53) dizziness Home Medications: Losartan Potassium 50 mg [Cozaar 50 MG] 50 mg PO BID 12/05/23 [History] Levothyroxine Sodium 25 Mcg [Synthroid 25 Mcg] 25 mcg PO DAILY 12/06/23 [History] Liothyronine Sodium 10 mcg PO DAILY 12/06/23 [History] Apixaban [Eliquis] 5 mg PO BID 02/17/24 [History] Triamterene/Hydrochlorothiazid [Triamterene-Hctz 37.5-25 mg Tb] 1 tab PO DAILY 02/17/24 [History] Ubidecarenone/Vit E Acet [Co Q-10 100 mg Softgel] 1 each PO DAILY 02/17/24 [History] - Progress Progress: improved Progress Note: 02/17/24 07:42 78 years old is checked out to me at shift change from Dr. Timmons with pending workup. Patient presented with sudden onset chest pain with radiation to the left jaw with a blood pressure in 200s. Received 20 mg IV labetalol in route currently blood pressure 160/79. Patient is given aspirin and Nitropaste send currently having minimal to no discomfort. Patient has no difficulty breathing and has negative troponins. Chemistries fairly unremarkable. D-dimers are negative. Chest x-ray is negative per Dr. Timmons reviewed, official reading is pending. Discussed the results of workup with patient, recommended observation admission for trending of cardiac enzymes which she agreed. Discussed with Dr. Anderson, reviewed history, workup and patient is being admitted. Discussed with Dr.: Other (: Dr. Cuellar) Counseled pt/family regarding: lab results, diagnosis, rad results Medical Desision Making - Independent Historian Additional History obtained from: Private Security Guard/EMT - Discussion of managment Care discussed with:: hospitalist (: Dr. Cuellar) Reviewed:: Test results Agreed on:: need for follow-up, place in obs Will see patient: in hospital - Diagnostic Testing Diagnostic test were ordered, analyzed, and reviewed by me: Yes Radiological Interpretation: Interpreted by me, Reviewed by me - Risk of complications The pt has a mod risk of morbidity or mortality based on: Need for prescription drug management The pt has a high risk of morbidity or mortality based on: Decision regarding hospitilization or escalation of hosp level of care - Departure Departure Disposition: Observation Clinical Impression: Chest pain, rule out acute myocardial infarction Condition: Stable Critical Care Time: No <JI TIMMONS - Last Filed: 02/17/24 23:10> - History of Present Illness Historian: patient Exam Limitations: no limitations Physician History: The patient, with a history of hypertension managed on Losartan 50mg twice daily, presented with acute onset chest pain radiating to the left jaw. The pain was severe enough to wake them from sleep. They also reported a concurrent headache and feeling hot, but denied any respiratory distress. The patient noted that their blood pressure readings had been trending higher in the evenings recently, but not as high as the reading taken by the ambulance crew. They denied any history of diabetes. The patient also reported a history of stroke approximately a month prior to this episode. They denied any recent illness with cough, congestion, or fever, and there was no reported abdominal pain or leg swelling. Timing/Duration: today Activities at Onset: sleep Quality: pressure, sharpness Location: substernal Chest Pain Radiation: jaw Severity of Pain-Max: severe Severity of Pain-Current: none Modifying Factors: Improves With: nitroglycerin, aspirin Associated Symptoms: headache, No nausea, No vomiting, No palpitations, No abdominal pain, No shortness of breath, No cough, No diaphoresis, No chills, No fever, No weakness, No dizziness, No edema Prior Chest Pain/Cardiac Workup: no prior chest pain Nitro Today/Relief: 0.4 mg x 4, provided by EMS, complete relief Aspirin Treatment Today: 81 mg x 4, provided by EMS Hx Tetanus, Diphtheria Vaccination/Date Given: Yes Hx Influenza Vaccination/Date Given: No Hx Pneumococcal Vaccination/Date Given: Yes (unknown) Travel Risk - Emerging Infectious Disease Are you exhibiting symptoms associated with any current EIDs: Yes Symptoms: Headaches/Body Aches/, Vomitting - Review of Systems All Other Systems: Reviewed and Negative - Past Medical History Pertinent Past Medical History: Yes Neurological History: Peripheral Neuropathy ENT History: Cataracts Cardiac History: Hypertension Respiratory History: No Pertinent History Endocrine Medical History: Hypothyroidism Musculoskeletal History: Osteoarthritis GI Medical History: No Pertinent History History: No Pertinent History Psycho-Social History: No Pertinent History Female Reproductive Disorders: No Pertinent History Other Medical History: OSTEOPENIA, LYME DISEASE, NEUROPATHY. - Past Surgical History Past Surgical History: Yes Neuro Surgical History: No Pertinent History Cardiac: No Pertinent History Respiratory: No Pertinent History Gastrointestinal: Hernia Repair Genitourinary: No Pertinent History Musculoskeletal: No Pertinent History Female Surgical History: Section, Hysterectomy Other Surgical History: July 2019- bladder repair - Social History Smoking Status: Never smoker Exposure to second hand smoke: No Drug Use: none Patient Lives Alone: No - Social Determinants of Health Will the patient participate in the screening: Yes Do you worry about a steady place to live?: No In the past 12 months,have you had to go without utilities?: No Transportation Issues: No Has anyone in your support network made you feel unsafe?: No Have you or anyone in your house had to go without enough: No - Nursing Vital Signs Nursing Vital Signs: Initial Vital Signs Pulse Rate 66 02/17/24 05:39 Respiratory Rate 14 02/17/24 05:39 Blood Pressure 194/78 02/17/24 05:39 O2 Sat by Pulse Oximetry 95 02/17/24 05:39 Pain Scale Pain Intensity 0 - Physical Exam General Appearance: no apparent distress Eye Exam: eyes nml inspection Ears, Nose, Throat Exam: normal ENT inspection Neck Exam: normal inspection, supple, full range of motion Respiratory Exam: normal breath sounds, lungs clear, airway intact, No chest tenderness, No respiratory distress Cardiovascular Exam: regular rate/rhythm, normal heart sounds, capillary refill <2 sec, No edema Gastrointestinal/Abdomen Exam: soft, No tenderness, No distention, No mass, No guarding, No rebound Back Exam: normal inspection, No CVA tenderness Extremity Exam: normal inspection, No swelling, No tenderness Neurologic Exam: alert, oriented x 3, cooperative Skin Exam: normal color, warm, dry SpO2 Interpretation: normal O2 Delivery: Room Air - Course Nursing assessment & vital signs reviewed: Yes EKG Interpreted by Me: RATE (68), Sinus Rhythm, NORMAL AXIS, NORMAL QRS, NORMAL ST-T, Other ([id number]) Ordered Tests: Active Orders 24 hr Category Date Time Status Bedrest ROUTINE Activity 02/17/24 10:27 Completed Up With Assistance ROUTINE Activity 02/17/24 10:27 Completed Call Admit Doctor for Orders ON ADMISSION Care 02/17/24 10:27 Completed Landscape Management Technician STAT Care 02/17/24 05:44 Completed Code Status Order ROUTINE Care 02/17/24 10:27 Completed EKG-ER Only STAT Care 02/17/24 05:42 Completed Fall Protocol Q1H Care 02/17/24 10:27 Completed IV Insertion STAT Care 02/17/24 05:[address] in Observation ROUTINE Care 02/17/24 10:27 Completed Telemetry q6h Care 02/17/24 10:27 Completed Heart-Healthy Diet Diet 02/17/24 Lunch Completed CHEST 1 VIEW (PORTABLE) Stat Exams 02/17/24 05:44 Completed CBC W DIFF Stat Lab 02/17/24 06:24 Completed CMP Stat Lab 02/17/24 06:24 Completed D-DIMER QUANTITATIVE Stat Lab 02/17/24 06:24 Completed NT PRO BNPII Stat Lab 02/17/24 06:24 Completed TROPONIN Q4H Lab 02/17/24 06:24 Completed TROPONIN Q4H Lab 02/17/24 09:09 Completed TROPONIN Q4H Lab 02/17/24 14:34 Completed TSH, 3RD Generation Stat Lab 02/17/24 06:24 Completed Pulse Oximetry CONTINUOUS RT 02/17/24 10:27 Completed Transfer Order Routine Transfer 02/17/24 Completed Medication Summary Discontinued Medications Generic Name Dose Route Start Last Admin Trade Name Freq PRN Reason Stop Dose Admin Apixaban 5 mg 02/17/24 14:35 02/17/24 14:58 Apixaban 2.5 Mg Tablet PO 02/17/24 14:36 5 mg ONCE ONE Administration Apixaban 5 mg 02/17/24 22:00 Apixaban 2.5 Mg Tablet PO 03/18/24 21:59 BID AIMEE Aspirin 81 mg 02/18/24 10:00 Aspirin 81 Mg Tablet.Ec PO 03/19/24 09:59 QAM AIMEE Aspirin 81 mg 02/17/24 13:03 02/17/24 13:28 Aspirin 81 Mg Tablet.Ec PO 02/17/24 13:04 81 mg 1XONLY ONE Administration Clonidine 0.1 mg 02/17/24 18:43 02/17/24 19:09 Clonidine Hcl 0.1 Mg Tablet PO 02/17/24 18:44 Not Given STAT ONE Hydrochlorothiazide 50 mg 02/17/24 10:00 02/17/24 06:01 Hydrochlorothiazide 25 Mg Tablet PO 03/18/24 09:59 50 mg DAILY AIMEE Administration Hydrochlorothiazide Confirm 02/17/24 06:02 Hydrochlorothiazide 25 Mg Tablet Administered 02/17/24 06:03 Dose 50 mg .ROUTE .STK-MED ONE Sodium Chloride 1,000 mls @ 999 mls/hr 02/17/24 05:42 02/17/24 07:09 Sodium Chloride 0.9% 1000 Ml IV 02/17/24 06:42 Infused .Q1H1M STA Infusion Sodium Chloride Confirm 02/17/24 06:00 Sodium Chloride 0.9% 1000 Ml Administered 02/17/24 06:01 Dose 1,000 mls @ ud .ROUTE .STK-MED ONE Levothyroxine Sodium 25 mcg 02/18/24 10:00 Levothyroxine Sodium 25 Mcg Tablet PO 03/19/24 09:59 DAILY AIMEE Levothyroxine Sodium 25 mcg 02/17/24 13:07 02/17/24 14:58 Levothyroxine Sodium 25 Mcg Tablet PO 02/17/24 13:08 25 mcg ONCE ONE Administration Losartan Potassium 50 mg 02/17/24 22:00 Losartan Potassium 50 Mg Tablet PO 03/18/24 21:59 BID AIMEE Losartan Potassium 50 mg 02/17/24 13:09 02/17/24 13:28 Losartan Potassium 50 Mg Tablet PO 02/17/24 13:10 50 mg ONCE ONE Administration Miscellaneous Information 1 each 02/17/24 11:15 Medication Intervention 1 Each Each 03/18/24 11:14 .RN TO CHECK AIMEE Miscellaneous Information 1 each 02/17/24 15:00 Medication Intervention 1 Each Each 08/20/24 14:59 .RN TO CHECK AIMEE Triamterene/Hydrochlorothiazide 1 tab 02/18/24 10:00 Triamterene/Hydrochlorothiazide 37.5/25mg 1 Tablet PO 03/19/24 09:59 DAILY AIMEE Triamterene/Hydrochlorothiazide 1 tab 02/17/24 14:35 02/17/24 14:58 Triamterene/Hydrochlorothiazide 37.5/25mg 1 Tablet PO 02/17/24 14:36 1 tab ONCE ONE Administration Lab/Rad Data: Laboratory Result Diagrams 02/17/24 06:24 02/17/24 06:24 Laboratory Results 02/17/24 02/17/24 02/17/24 Range/Units 09:09 06:24 06:24 WBC (3.98-10.04) x10^3/uL RBC (3.93-5.22) x10^6/uL Hgb (11.2-15.7) g/dL Hct (34.1-44.9) % MCV (79.4-94.8) fL MCH (25.6-32.2) pg MCHC (32.2-35.5) g/dL RDW (11.7-14.4) % Plt Count (182-369) x10^3/uL MPV (9.4-12.3) fL Gran % (34.0-71.1) % Immature Gran % (Auto) (0.001-0.429) % Nucleat RBC Rel Count (0.00-0.2) % Eos # (Auto) (0.04-0.36) x10^3/uL Immature Gran # (Auto) (0.001-0.031) x10^3u/L Absolute Lymphs (auto) (1.18-3.74) x10^3/uL Absolute Monos (auto) (0.24-0.86) x10^3/uL Absolute Nucleated RBC (0.00-0.012) x10^3u/L Lymphocytes % (19.3-51.7) % Monocytes % (4.7-12.5) % Eosinophils % (0.7-5.8) % Basophils % (0.1-1.2) % Absolute Granulocytes (1.56-6.13) x10^3/uL Basophils # (0.01-0.08) x10^3/uL D-Dimer 0.50 (0.0-0.50) mg/L Sodium (135-145) mmol/L Potassium (3.5-5.1) mmol/L Chloride (98-107) mmol/L Carbon Dioxide (22-30) mmol/L Anion Gap (5-15) MEQ/L BUN (7-17) mg/dL Creatinine (0.52-1.04) mg/dL Estimated GFR ML/MIN Glucose (74-106) mg/dL Calcium (8.4-10.2) mg/dL Total Bilirubin (0.2-1.3) mg/dL AST (14-36) U/L ALT (0-35) U/L Alkaline Phosphatase (38-126) U/L Troponin I < 0.012 < 0.012 (0.000-0.033) ng/mL NT-Pro-B Natriuret Pep (<300) pg/mL Serum Total Protein (6.3-8.2) g/dL Albumin (3.5-5.0) g/dL TSH 3rd Generation (0.470-4.680) mIU/L 02/17/24 02/17/24 Range/Units 06:24 06:24 WBC 6.9 (3.98-10.04) x10^3/uL RBC 3.48 L (3.93-5.22) x10^6/uL Hgb 10.7 L (11.2-15.7) g/dL Hct 32.4 L (34.1-44.9) % MCV 93.1 (79.4-94.8) fL MCH 30.7 (25.6-32.2) pg MCHC 33.0 (32.2-35.5) g/dL RDW 13.0 (11.7-14.4) % Plt Count 299 (182-369) x10^3/uL MPV 9.0 L (9.4-12.3) fL Gran % 58.7 (34.0-71.1) % Immature Gran % (Auto) 0.3 (0.001-0.429) % Nucleat RBC Rel Count 0.0 (0.00-0.2) % Eos # (Auto) 0.21 (0.04-0.36) x10^3/uL Immature Gran # (Auto) 0.02 (0.001-0.031) x10^3u/L Absolute Lymphs (auto) 2.09 (1.18-3.74) x10^3/uL Absolute Monos (auto) 0.49 (0.24-0.86) x10^3/uL Absolute Nucleated RBC 0.00 (0.00-0.012) x10^3u/L Lymphocytes % 30.2 (19.3-51.7) % Monocytes % 7.1 (4.7-12.5) % Eosinophils % 3.0 (0.7-5.8) % Basophils % 0.7 (0.1-1.2) % Absolute Granulocytes 4.07 (1.56-6.13) x10^3/uL Basophils # 0.05 (0.01-0.08) x10^3/uL D-Dimer (0.0-0.50) mg/L Sodium 136 (135-145) mmol/L Potassium 3.5 (3.5-5.1) mmol/L Chloride 106 (98-107) mmol/L Carbon Dioxide 23 (22-30) mmol/L Anion Gap 10.3 (5-15) MEQ/L BUN 15 (7-17) mg/dL Creatinine 0.64 (0.52-1.04) mg/dL Estimated GFR 89.3 ML/MIN Glucose 119 H (74-106) mg/dL Calcium 8.5 (8.4-10.2) mg/dL Total Bilirubin 0.50 (0.2-1.3) mg/dL AST 23 (14-36) U/L ALT 18 (0-35) U/L Alkaline Phosphatase 94 (38-126) U/L Troponin I (0.000-0.033) ng/mL NT-Pro-B Natriuret Pep 201 (<300) pg/mL Serum Total Protein 6.4 (6.3-8.2) g/dL Albumin 3.7 (3.5-5.0) g/dL TSH 3rd Generation 2.484 (0.470-4.680) mIU/L - Progress Air Movement: good Blood Culture(s) Obtained: No Antibiotics given: No
[2024-02-17] MEDS ORDERED: Sodium Chloride 0.9% 1000 ML 1,000 ML ONE (06:00)
[2024-02-17] MEDS: hydroDIURIL 25 MG PO SCH (06:01)
[2024-02-17] MEDS: Sodium Chloride 0.9% 1000 ML 1,000 ML IV STA (06:01)
[2024-02-17] MEDS ORDERED: hydroDIURIL 25 MG ONE (06:02)
[2024-02-17 06:28] LABS: Absolute Neutrophil Ct (ANC) 4.07 x10^3/uL (1.56-6.13); BASOPHIL % 0.7 % (0.1-1.2); Basophil (Absolute #) 0.05 x10^3/uL (0.01-0.08); Eosinophil (Absolute #) 0.21 x10^3/uL (0.04-0.36); Hematocrit 32.4 % (34.1-44.9); Hemoglobin 10.7 g/dL (11.2-15.7); IMMATURE GRAN # 0.02 x10^3u/L (0.001-0.031); IMMATURE GRAN % 0.3 % (0.001-0.429); Lymphocyte (Absolute #) 2.09 x10^3/uL (1.18-3.74); Lymphocytes % 30.2 % (19.3-51.7); Mean Cell Volume 93.1 fL (79.4-94.8); Mean Corpuscular Hemoglobin 30.7 pg (25.6-32.2); Monocyte (Absolute #) 0.49 x10^3/uL (0.24-0.86); Monocytes % 7.1 % (4.7-12.5); Neutrophil % 58.7 % (34.0-71.1); Platelet Count 299 x10^3/uL (182-369); Red Blood Count 3.48 x10^6/uL (3.93-5.22); White Blood Count 6.9 x10^3/uL (3.98-10.04)
[2024-02-17 07:12] LABS: ALBUMIN 3.7 g/dL (3.5-5.0); ANION GAP 10.3 MEQ/L (5-15); BILIRUBIN,TOTAL 0.5 mg/dL (0.2-1.3); Calcium 8.5 mg/dL (8.4-10.2); Creatinine 1 0.64 mg/dL (0.52-1.04); EST GLOMERULAR FILTRATION RATE 89.3 ML/MIN; Potassium 3.5 mmol/L (3.5-5.1); TSH, 3RD Generation 2.484 mIU/L (0.470-4.680); Total Protein 6.4 g/dL (6.3-8.2)
--- NOTE | 2024-02-17 07:33 | XRAY ---
Indication: Chest pain radiating left. Comparison: Nov, 2023 Portable chest now rotated again hyperinflated and clear with a few incidental tiny calcified granulomas. Heart now borderline enlarged. Bony thorax intact again with osteopenia, degenerative changes, and levorotoscoliosis. No acute findings.
[2024-02-17] MEDS ORDERED: MEDICATION INTERVENTION MC SCH ×2 (11:15→15:00)
--- NOTE | 2024-02-17 11:26 | PCM.HP ---
History of Present Illness - Chief Complaint Chief Complaint: Chest pain rule out acute MD Date: 02/17/24 History of Present Illness: is a 78 year old female. - Review of Systems Constitutional: No Fever, No Chills Eyes: No Symptoms Ears, Nose, & Throat: No Symptoms Respiratory: No Cough, No Short Of Breath Cardiac: No Chest Pain, No Edema, No Syncope Abdominal/Gastrointestinal: No Abdominal Pain, No Nausea, No Vomiting, No Diarrhea Genitourinary Symptoms: No Dysuria Musculoskeletal: No Back Pain, No Neck Pain Skin: No Rash Neurological: No Dizziness, No Focal Weakness, No Sensory Changes Psychological: No Symptoms Endocrine: No Symptoms Hematologic/Lymphatic: No Symptoms Immunological/Allergic: No Symptoms Medications & Allergies Home Medications: Home Medication List Losartan Potassium 50 mg [Cozaar 50 MG] 50 mg PO BID 12/05/23 [History Confirmed 02/17/24] Levothyroxine Sodium 25 Mcg [Synthroid 25 Mcg] 25 mcg PO DAILY 12/06/23 [History Confirmed 02/17/24] Liothyronine Sodium 10 mcg PO DAILY 12/06/23 [History Confirmed 02/17/24] Aspirin EC 81 mg [Ecotrin 81 mg] 81 mg PO QAM 30 Days #30 tablet 12/07/23 [Rx Confirmed 02/17/24] Ubidecarenone/Vit E Acet [Co Q-10 100 mg Softgel] 1 each PO DAILY 02/17/24 [History Confirmed 02/17/24] Allergies/Adverse Reactions: Allergies Allergy/AdvReac Type Severity Reaction Status Date / Time amoxicillin [From Augmentin] Allergy Intermediate Swelling Verified 02/17/24 05:53 of Tongue and Lips cephalexin monohydrate Allergy Intermediate Hives Verified 02/17/24 05:53 [From Keflex] clavulanic acid Allergy Intermediate Swelling Verified 02/17/24 05:53 [From Augmentin] of Tongue and Lips erythromycin base Allergy Intermediate Hives Verified 02/17/24 05:53 [Erythromycin Base] moxifloxacin Allergy Intermediate Verified 02/17/24 05:53 minocycline AdvReac Intermediate Verified 02/17/24 05:53 - Past Medical History Past Medical History: Yes Neurological History: Peripheral Neuropathy ENT History: Cataracts Cardiac History: Hypertension Respiratory History: No Pertinent History Endocrine Medical History: Hypothyroidism Musculoskelatal History: Osteoarthritis GI Medical History: No Pertinent History History: No Pertinent History Pyscho-Social History: No Pertinent History Reproductive Disorders: No Pertinent History Comment: OSTEOPENIA, LYME DISEASE, NEUROPATHY. - Past Surgical History Past Surgical History: Yes Neuro Surgical History: No Pertinent History Cardiac History: No Pertinent History Respiratory Surgery: No Pertinent History GI Surgical History: Hernia Repair Genitourinary Surgical Hx: No Pertinent History Musculskeletal Surgical Hx: No Pertinent History Female Surgical History: Section, Hysterectomy Other Surgical History: July 2019- bladder repair - Social History Smoking Status: Never smoker Exposure to second hand smoke: No Alcohol: None Drug Use: none - Social Determinants of Health Will the patient participate in the screening: Yes Do you worry about a steady place to live?: No Do you have any problems with any of the following?: No known problems In the past 12 months,have you had to go without utilities?: No Have you or anyone in your house had to go without enough: No Transportation Issues: No Has anyone in your support network made you feel unsafe?: No Does the patient want assistance with any of the above?: No - Physical Exam Vital Signs: Vital Signs - 24 hr Temp Pulse Pulse Resp BP BP Pulse Ox 02/17/24 10:38 96.0 F 65 18 176/79 93 L 02/17/24 10:27 96.0 F 65 18 176/79 93 L 02/17/24 10:00 61 15 133/63 91 L 02/17/24 09:30 62 17 161/77 92 L 02/17/24 09:00 63 12 156/72 91 L 02/17/24 08:30 63 13 162/72 95 02/17/24 08:00 63 17 170/79 96 02/17/24 07:30 65 13 160/79 97 02/17/24 07:00 63 20 178/83 94 L 02/17/24 06:31 62 13 170/58 93 L 02/17/24 06:00 78 183/77 96 02/17/24 05:39 66 68 14 194/78 95 General Appearance: no apparent distress, alert Neurologic Exam: alert, oriented x 3, cooperative, normal mood/affect, nml cerebellar function, nml station & gait, sensation nml, No motor deficits Eye Exam: PERRL/EOMI, eyes nml inspection Ears, Nose, Throat Exam: normal ENT inspection, TMs normal, pharynx normal, moist mucous membranes Neck Exam: normal inspection, non-tender, supple, full range of motion Respiratory Exam: normal breath sounds, lungs clear, No respiratory distress Cardiovascular Exam: regular rate/rhythm, normal heart sounds, normal peripheral pulses Gastrointestinal/Abdomen Exam: soft, normal bowel sounds, No tenderness, No mass Back Exam: normal inspection, normal range of motion, No CVA tenderness, No vertebral tenderness Extremity Exam: normal inspection, normal range of motion, pelvis stable Skin Exam: normal color, warm, dry, No rash Lymphatic Exam: No adenopathy Results - Labs Lab/Micro Results: Lab Results-Last 24 Hours 02/17/24 02/17/24 02/17/24 Range/Units 06:24 06:24 06:24 WBC 6.9 (3.98-10.04) x10^3/uL RBC 3.48 L (3.93-5.22) x10^6/uL Hgb 10.7 L (11.2-15.7) g/dL Hct 32.4 L (34.1-44.9) % MCV 93.1 (79.4-94.8) fL MCH 30.7 (25.6-32.2) pg MCHC 33.0 (32.2-35.5) g/dL RDW 13.0 (11.7-14.4) % Plt Count 299 (182-369) x10^3/uL MPV 9.0 L (9.4-12.3) fL Gran % 58.7 (34.0-71.1) % Immature Gran % (Auto) 0.3 (0.001-0.429) % Nucleat RBC Rel Count 0.0 (0.00-0.2) % Eos # (Auto) 0.21 (0.04-0.36) x10^3/uL Immature Gran # (Auto) 0.02 (0.001-0.031) x10^3u/L Absolute Lymphs (auto) 2.09 (1.18-3.74) x10^3/uL Absolute Monos (auto) 0.49 (0.24-0.86) x10^3/uL Absolute Nucleated RBC 0.00 (0.00-0.012) x10^3u/L Lymphocytes % 30.2 (19.3-51.7) % Monocytes % 7.1 (4.7-12.5) % Eosinophils % 3.0 (0.7-5.8) % Basophils % 0.7 (0.1-1.2) % Absolute Granulocytes 4.07 (1.56-6.13) x10^3/uL Basophils # 0.05 (0.01-0.08) x10^3/uL D-Dimer 0.50 (0.0-0.50) mg/L Sodium 136 (135-145) mmol/L Potassium 3.5 (3.5-5.1) mmol/L Chloride 106 (98-107) mmol/L Carbon Dioxide 23 (22-30) mmol/L Anion Gap 10.3 (5-15) MEQ/L BUN 15 (7-17) mg/dL Creatinine 0.64 (0.52-1.04) mg/dL Estimated GFR 89.3 ML/MIN Glucose 119 H (74-106) mg/dL Calcium 8.5 (8.4-10.2) mg/dL Total Bilirubin 0.50 (0.2-1.3) mg/dL AST 23 (14-36) U/L ALT 18 (0-35) U/L Alkaline Phosphatase 94 (38-126) U/L Troponin I (0.000-0.033) ng/mL NT-Pro-B Natriuret Pep 201 (<300) pg/mL Serum Total Protein 6.4 (6.3-8.2) g/dL Albumin 3.7 (3.5-5.0) g/dL TSH 3rd Generation 2.484 (0.470-4.680) mIU/L 02/17/24 02/17/24 Range/Units 06:24 09:09 WBC (3.98-10.04) x10^3/uL RBC (3.93-5.22) x10^6/uL Hgb (11.2-15.7) g/dL Hct (34.1-44.9) % MCV (79.4-94.8) fL MCH (25.6-32.2) pg MCHC (32.2-35.5) g/dL RDW (11.7-14.4) % Plt Count (182-369) x10^3/uL MPV (9.4-12.3) fL Gran % (34.0-71.1) % Immature Gran % (Auto) (0.001-0.429) % Nucleat RBC Rel Count (0.00-0.2) % Eos # (Auto) (0.04-0.36) x10^3/uL Immature Gran # (Auto) (0.001-0.031) x10^3u/L Absolute Lymphs (auto) (1.18-3.74) x10^3/uL Absolute Monos (auto) (0.24-0.86) x10^3/uL Absolute Nucleated RBC (0.00-0.012) x10^3u/L Lymphocytes % (19.3-51.7) % Monocytes % (4.7-12.5) % Eosinophils % (0.7-5.8) % Basophils % (0.1-1.2) % Absolute Granulocytes (1.56-6.13) x10^3/uL Basophils # (0.01-0.08) x10^3/uL D-Dimer (0.0-0.50) mg/L Sodium (135-145) mmol/L Potassium (3.5-5.1) mmol/L Chloride (98-107) mmol/L Carbon Dioxide (22-30) mmol/L Anion Gap (5-15) MEQ/L BUN (7-17) mg/dL Creatinine (0.52-1.04) mg/dL Estimated GFR ML/MIN Glucose (74-106) mg/dL Calcium (8.4-10.2) mg/dL Total Bilirubin (0.2-1.3) mg/dL AST (14-36) U/L ALT (0-35) U/L Alkaline Phosphatase (38-126) U/L Troponin I < 0.012 < 0.012 (0.000-0.033) ng/mL NT-Pro-B Natriuret Pep (<300) pg/mL Serum Total Protein (6.3-8.2) g/dL Albumin (3.5-5.0) g/dL TSH 3rd Generation (0.470-4.680) mIU/L - Radiology Impressions Radiology Exams & Impressions: Radiology Procedures Category Date Time Status CHEST 1 VIEW (PORTABLE) Stat Exams 02/17/24 05:44 Completed Assessment/Plan (1) Chest pain Current Visit: Yes Status: Acute Code(s): R07.9 - CHEST PAIN, UNSPECIFIED (2) HTN (hypertension) Current Visit: Yes Status: Acute Code(s): I10 - ESSENTIAL (PRIMARY) HYPERTENSION (3) Hypothyroidism Current Visit: No Status: Chronic Code(s): E03.9 - HYPOTHYROIDISM, UNSPECIFIED
--- NOTE | 2024-02-17 12:25 | PCM.SSS ---
History of Present Illness - Chief Complaint Chief Complaint: Chest pain, HTN Date: 02/17/24 History of Present Illness: is a 78 year old female with PMHX of peripheral neuropathy, cataracts, HTN, OA, and CVA. She came to the ER today for HTN and CP that woke her form her sleep, and pain radiated to the left jaw. She is no longer having CP or jaw pain. The patient, with a history of hypertension managed on Losartan 50mg twice daily. The patient also reported a history of stroke approximately a month prior to this episode. She had an Op Holter monitor and was found to be in A-fib by cardiology placed on Eliquis and HCTZ. She admits to not taking these meds for several reasons including risk of injury with fall, and she is sensitive to meds. She is willing however to start them. 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 She wants to go home today. Trop x2 negative. She did not take her home meds today. Will restart them and monitor her BP. If stable, trops negative and repeat EKG ok she can d/c today and f/u with cardiology OP. - Review of Systems Constitutional: No Fever, No Chills Eyes: No Symptoms Ears, Nose, & Throat: No Symptoms Respiratory: No Cough, No Short Of Breath Cardiac: No Chest Pain, No Edema, No Syncope Abdominal/Gastrointestinal: No Abdominal Pain, No Nausea, No Vomiting, No Diarrhea Genitourinary Symptoms: No Dysuria Musculoskeletal: No Back Pain, No Neck Pain Skin: No Rash Neurological: No Dizziness, No Focal Weakness, No Sensory Changes Psychological: No Symptoms Endocrine: No Symptoms Hematologic/Lymphatic: No Symptoms Immunological/Allergic: No Symptoms Medications & Allergies Home Medications: Home Medication List Losartan Potassium 50 mg [Cozaar 50 MG] 50 mg PO BID 12/05/23 [History Confirmed 02/17/24] Levothyroxine Sodium 25 Mcg [Synthroid 25 Mcg] 25 mcg PO DAILY 12/06/23 [History Confirmed 02/17/24] Liothyronine Sodium 10 mcg PO DAILY 12/06/23 [History Confirmed 02/17/24] Aspirin EC 81 mg [Ecotrin 81 mg] 81 mg PO QAM 30 Days #30 tablet 12/07/23 [Rx Confirmed 02/17/24] Apixaban [Eliquis] 5 mg PO BID 02/17/24 [History Confirmed 02/17/24] Clonidine HCl 0.1 mg [Clonidine 0.1 mg Tablet] 0.1 mg PO BIDPRN PRN 30 Days #60 tablet 02/17/24 [Rx] Triamterene/Hydrochlorothiazid [Triamterene-Hctz 37.5-25 mg Tb] 1 tab PO DAILY 02/17/24 [History Confirmed 02/17/24] Ubidecarenone/Vit E Acet [Co Q-10 100 mg Softgel] 1 each PO DAILY 02/17/24 [History Confirmed 02/17/24] Allergies/Adverse Reactions: Allergies Allergy/AdvReac Type Severity Reaction Status Date / Time amoxicillin [From Augmentin] Allergy Intermediate Swelling Verified 02/17/24 05:53 of Tongue and Lips cephalexin monohydrate Allergy Intermediate Hives Verified 02/17/24 05:53 [From Keflex] clavulanic acid Allergy Intermediate Swelling Verified 02/17/24 05:53 [From Augmentin] of Tongue and Lips erythromycin base Allergy Intermediate Hives Verified 02/17/24 05:53 [Erythromycin Base] moxifloxacin Allergy Intermediate Verified 02/17/24 05:53 minocycline AdvReac Intermediate Verified 02/17/24 05:53 - Past Medical History Past Medical History: Yes Neurological History: Peripheral Neuropathy ENT History: Cataracts Cardiac History: Hypertension Respiratory History: No Pertinent History Endocrine Medical History: Hypothyroidism Musculoskelatal History: Osteoarthritis GI Medical History: No Pertinent History History: No Pertinent History Pyscho-Social History: No Pertinent History Reproductive Disorders: No Pertinent History Comment: OSTEOPENIA, LYME DISEASE, NEUROPATHY. - Past Surgical History Past Surgical History: Yes Neuro Surgical History: No Pertinent History Cardiac History: No Pertinent History Respiratory Surgery: No Pertinent History GI Surgical History: Hernia Repair Genitourinary Surgical Hx: No Pertinent History Musculskeletal Surgical Hx: No Pertinent History Female Surgical History: Section, Hysterectomy Other Surgical History: July 2019- bladder repair - Social History Smoking Status: Never smoker Exposure to second hand smoke: No Alcohol: None Drug Use: none - Social Determinants of Health Will the patient participate in the screening: Yes Do you worry about a steady place to live?: No Do you have any problems with any of the following?: No known problems In the past 12 months,have you had to go without utilities?: No Have you or anyone in your house had to go without enough: No Transportation Issues: No Has anyone in your support network made you feel unsafe?: No Does the patient want assistance with any of the above?: No - Physical Exam Vital Signs: Vital Signs - 24 hr Temp Pulse Pulse Resp BP BP Pulse Ox 02/17/24 10:38 96.0 F 65 18 176/79 93 L 02/17/24 10:27 96.0 F 65 18 176/79 93 L 02/17/24 10:00 61 15 133/63 91 L 02/17/24 09:30 62 17 161/77 92 L 02/17/24 09:00 63 12 156/72 91 L 02/17/24 08:30 63 13 162/72 95 02/17/24 08:00 63 17 170/79 96 02/17/24 07:30 65 13 160/79 97 02/17/24 07:00 63 20 178/83 94 L 02/17/24 06:31 62 13 170/58 93 L 02/17/24 06:00 78 183/77 96 02/17/24 05:39 66 68 14 194/78 95 General Appearance: no apparent distress, alert Neurologic Exam: alert, oriented x 3, cooperative, normal mood/affect, nml cerebellar function, nml station & gait, sensation nml, No motor deficits Eye Exam: PERRL/EOMI, eyes nml inspection Ears, Nose, Throat Exam: normal ENT inspection, TMs normal, pharynx normal, moist mucous membranes Neck Exam: normal inspection, non-tender, supple, full range of motion Respiratory Exam: normal breath sounds, lungs clear, No respiratory distress Cardiovascular Exam: regular rate/rhythm, normal heart sounds, normal peripheral pulses Gastrointestinal/Abdomen Exam: soft, normal bowel sounds, No tenderness, No mass Back Exam: normal inspection, normal range of motion, No CVA tenderness, No vertebral tenderness Extremity Exam: normal inspection, normal range of motion, pelvis stable Skin Exam: normal color, warm, dry, No rash Lymphatic Exam: No adenopathy Results - Labs Lab/Micro Results: Lab Results-Last 24 Hours 02/17/24 02/17/24 02/17/24 Range/Units 06:24 06:24 06:24 WBC 6.9 (3.98-10.04) x10^3/uL RBC 3.48 L (3.93-5.22) x10^6/uL Hgb 10.7 L (11.2-15.7) g/dL Hct 32.4 L (34.1-44.9) % MCV 93.1 (79.4-94.8) fL MCH 30.7 (25.6-32.2) pg MCHC 33.0 (32.2-35.5) g/dL RDW 13.0 (11.7-14.4) % Plt Count 299 (182-369) x10^3/uL MPV 9.0 L (9.4-12.3) fL Gran % 58.7 (34.0-71.1) % Immature Gran % (Auto) 0.3 (0.001-0.429) % Nucleat RBC Rel Count 0.0 (0.00-0.2) % Eos # (Auto) 0.21 (0.04-0.36) x10^3/uL Immature Gran # (Auto) 0.02 (0.001-0.031) x10^3u/L Absolute Lymphs (auto) 2.09 (1.18-3.74) x10^3/uL Absolute Monos (auto) 0.49 (0.24-0.86) x10^3/uL Absolute Nucleated RBC 0.00 (0.00-0.012) x10^3u/L Lymphocytes % 30.2 (19.3-51.7) % Monocytes % 7.1 (4.7-12.5) % Eosinophils % 3.0 (0.7-5.8) % Basophils % 0.7 (0.1-1.2) % Absolute Granulocytes 4.07 (1.56-6.13) x10^3/uL Basophils # 0.05 (0.01-0.08) x10^3/uL D-Dimer 0.50 (0.0-0.50) mg/L Sodium 136 (135-145) mmol/L Potassium 3.5 (3.5-5.1) mmol/L Chloride 106 (98-107) mmol/L Carbon Dioxide 23 (22-30) mmol/L Anion Gap 10.3 (5-15) MEQ/L BUN 15 (7-17) mg/dL Creatinine 0.64 (0.52-1.04) mg/dL Estimated GFR 89.3 ML/MIN Glucose 119 H (74-106) mg/dL Calcium 8.5 (8.4-10.2) mg/dL Total Bilirubin 0.50 (0.2-1.3) mg/dL AST 23 (14-36) U/L ALT 18 (0-35) U/L Alkaline Phosphatase 94 (38-126) U/L Troponin I (0.000-0.033) ng/mL NT-Pro-B Natriuret Pep 201 (<300) pg/mL Serum Total Protein 6.4 (6.3-8.2) g/dL Albumin 3.7 (3.5-5.0) g/dL TSH 3rd Generation 2.484 (0.470-4.680) mIU/L 02/17/24 02/17/24 Range/Units 06:24 09:09 WBC (3.98-10.04) x10^3/uL RBC (3.93-5.22) x10^6/uL Hgb (11.2-15.7) g/dL Hct (34.1-44.9) % MCV (79.4-94.8) fL MCH (25.6-32.2) pg MCHC (32.2-35.5) g/dL RDW (11.7-14.4) % Plt Count (182-369) x10^3/uL MPV (9.4-12.3) fL Gran % (34.0-71.1) % Immature Gran % (Auto) (0.001-0.429) % Nucleat RBC Rel Count (0.00-0.2) % Eos # (Auto) (0.04-0.36) x10^3/uL Immature Gran # (Auto) (0.001-0.031) x10^3u/L Absolute Lymphs (auto) (1.18-3.74) x10^3/uL Absolute Monos (auto) (0.24-0.86) x10^3/uL Absolute Nucleated RBC (0.00-0.012) x10^3u/L Lymphocytes % (19.3-51.7) % Monocytes % (4.7-12.5) % Eosinophils % (0.7-5.8) % Basophils % (0.1-1.2) % Absolute Granulocytes (1.56-6.13) x10^3/uL Basophils # (0.01-0.08) x10^3/uL D-Dimer (0.0-0.50) mg/L Sodium (135-145) mmol/L Potassium (3.5-5.1) mmol/L Chloride (98-107) mmol/L Carbon Dioxide (22-30) mmol/L Anion Gap (5-15) MEQ/L BUN (7-17) mg/dL Creatinine (0.52-1.04) mg/dL Estimated GFR ML/MIN Glucose (74-106) mg/dL Calcium (8.4-10.2) mg/dL Total Bilirubin (0.2-1.3) mg/dL AST (14-36) U/L ALT (0-35) U/L Alkaline Phosphatase (38-126) U/L Troponin I < 0.012 < 0.012 (0.000-0.033) ng/mL NT-Pro-B Natriuret Pep (<300) pg/mL Serum Total Protein (6.3-8.2) g/dL Albumin (3.5-5.0) g/dL TSH 3rd Generation (0.470-4.680) mIU/L - Radiology Impressions Radiology Exams & Impressions: Radiology Procedures Category Date Time Status CHEST 1 VIEW (PORTABLE) Stat Exams 02/17/24 05:44 Completed Assessment/Plan (1) Chest pain Current Visit: Yes Status: Acute Assessment & Plan: - Trend trops - EKG reviewed- and repeat this afternoon - Tele - F/u with cardiology OP - TSH Code(s): R07.9 - CHEST PAIN, UNSPECIFIED (2) HTN (hypertension) Current Visit: Yes Status: Acute Assessment & Plan: - resume HCTZ and Losartan - monitor Code(s): I10 - ESSENTIAL (PRIMARY) HYPERTENSION (3) Hypothyroidism Current Visit: No Status: Chronic Assessment & Plan: - TSH- WNL - Continue home meds Code(s): E03.9 - HYPOTHYROIDISM, UNSPECIFIED Hospital Summary - Hospital Course Hospital Course: is a 78 year old female with PMHX of peripheral neuropathy, cataracts, HTN, OA, and CVA. She came to the ER today for HTN and CP that woke her form her sleep, and pain radiated to the left jaw. She is no longer having CP or jaw pain. The patient, with a history of hypertension managed on Losartan 50mg twice daily. The patient also reported a history of stroke approximately a month prior to this episode. She had an Op Holter monitor and was found to be in A-fib by cardiology placed on Eliquis and HCTZ. She admits to not taking these meds for several reasons including risk of injury with fall, and she is sensitive to meds. She is willing however to start them. 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 She wants to go home today. Trop x2 negative. She did not take her home meds today. Will restart them and monitor her BP. If stable, trops negative and repeat EKG ok she can d/c today and f/u with cardiology OP. - Vitals & Intake/Output Vital Signs: Vital Signs Temperature 96.0 F 02/17/24 10:38 Pulse Rate 65 02/17/24 10:38 Respiratory Rate 18 02/17/24 10:38 Blood Pressure 176/79 02/17/24 10:38 O2 Sat by Pulse Oximetry 93 L 02/17/24 10:38 Intake & Output: Intake & Output 02/15/24 02/16/24 02/17/24 02/18/24 11:59 11:59 11:59 11:59 Weight 70 kg - Lab Result Diagrams: 02/17/24 06:24 02/17/24 06:24 Lab Results-Last 24 Hrs: Lab Results-Last 24 Hours 02/17/24 02/17/24 02/17/24 Range/Units 06:24 06:24 06:24 WBC 6.9 (3.98-10.04) x10^3/uL RBC 3.48 L (3.93-5.22) x10^6/uL Hgb 10.7 L (11.2-15.7) g/dL Hct 32.4 L (34.1-44.9) % MCV 93.1 (79.4-94.8) fL MCH 30.7 (25.6-32.2) pg MCHC 33.0 (32.2-35.5) g/dL RDW 13.0 (11.7-14.4) % Plt Count 299 (182-369) x10^3/uL MPV 9.0 L (9.4-12.3) fL Gran % 58.7 (34.0-71.1) % Immature Gran % (Auto) 0.3 (0.001-0.429) % Nucleat RBC Rel Count 0.0 (0.00-0.2) % Eos # (Auto) 0.21 (0.04-0.36) x10^3/uL Immature Gran # (Auto) 0.02 (0.001-0.031) x10^3u/L Absolute Lymphs (auto) 2.09 (1.18-3.74) x10^3/uL Absolute Monos (auto) 0.49 (0.24-0.86) x10^3/uL Absolute Nucleated RBC 0.00 (0.00-0.012) x10^3u/L Lymphocytes % 30.2 (19.3-51.7) % Monocytes % 7.1 (4.7-12.5) % Eosinophils % 3.0 (0.7-5.8) % Basophils % 0.7 (0.1-1.2) % Absolute Granulocytes 4.07 (1.56-6.13) x10^3/uL Basophils # 0.05 (0.01-0.08) x10^3/uL D-Dimer 0.50 (0.0-0.50) mg/L Sodium 136 (135-145) mmol/L Potassium 3.5 (3.5-5.1) mmol/L Chloride 106 (98-107) mmol/L Carbon Dioxide 23 (22-30) mmol/L Anion Gap 10.3 (5-15) MEQ/L BUN 15 (7-17) mg/dL Creatinine 0.64 (0.52-1.04) mg/dL Estimated GFR 89.3 ML/MIN Glucose 119 H (74-106) mg/dL Calcium 8.5 (8.4-10.2) mg/dL Total Bilirubin 0.50 (0.2-1.3) mg/dL AST 23 (14-36) U/L ALT 18 (0-35) U/L Alkaline Phosphatase 94 (38-126) U/L Troponin I (0.000-0.033) ng/mL NT-Pro-B Natriuret Pep 201 (<300) pg/mL Serum Total Protein 6.4 (6.3-8.2) g/dL Albumin 3.7 (3.5-5.0) g/dL TSH 3rd Generation 2.484 (0.470-4.680) mIU/L 02/17/24 02/17/24 Range/Units 06:24 09:09 WBC (3.98-10.04) x10^3/uL RBC (3.93-5.22) x10^6/uL Hgb (11.2-15.7) g/dL Hct (34.1-44.9) % MCV (79.4-94.8) fL MCH (25.6-32.2) pg MCHC (32.2-35.5) g/dL RDW (11.7-14.4) % Plt Count (182-369) x10^3/uL MPV (9.4-12.3) fL Gran % (34.0-71.1) % Immature Gran % (Auto) (0.001-0.429) % Nucleat RBC Rel Count (0.00-0.2) % Eos # (Auto) (0.04-0.36) x10^3/uL Immature Gran # (Auto) (0.001-0.031) x10^3u/L Absolute Lymphs (auto) (1.18-3.74) x10^3/uL Absolute Monos (auto) (0.24-0.86) x10^3/uL Absolute Nucleated RBC (0.00-0.012) x10^3u/L Lymphocytes % (19.3-51.7) % Monocytes % (4.7-12.5) % Eosinophils % (0.7-5.8) % Basophils % (0.1-1.2) % Absolute Granulocytes (1.56-6.13) x10^3/uL Basophils # (0.01-0.08) x10^3/uL D-Dimer (0.0-0.50) mg/L Sodium (135-145) mmol/L Potassium (3.5-5.1) mmol/L Chloride (98-107) mmol/L Carbon Dioxide (22-30) mmol/L Anion Gap (5-15) MEQ/L BUN (7-17) mg/dL Creatinine (0.52-1.04) mg/dL Estimated GFR ML/MIN Glucose (74-106) mg/dL Calcium (8.4-10.2) mg/dL Total Bilirubin (0.2-1.3) mg/dL AST (14-36) U/L ALT (0-35) U/L Alkaline Phosphatase (38-126) U/L Troponin I < 0.012 < 0.012 (0.000-0.033) ng/mL NT-Pro-B Natriuret Pep (<300) pg/mL Serum Total Protein (6.3-8.2) g/dL Albumin (3.5-5.0) g/dL TSH 3rd Generation (0.470-4.680) mIU/L - Radiology Exams Ordered Rad Exams-Entire Visit: Radiology Procedures Category Date Time Status CHEST 1 VIEW (PORTABLE) Stat Exams 02/17/24 05:44 Completed - Discharge Discharge Date: 02/17/24 Disposition: Home, Self-Care Condition: Stable Prescriptions: Continue Losartan Potassium 50 mg [Cozaar 50 MG] 50 mg PO BID Liothyronine Sodium 10 mcg PO DAILY Levothyroxine Sodium 25 Mcg [Synthroid 25 Mcg] 25 mcg PO DAILY Aspirin EC 81 mg [Ecotrin 81 mg] 81 mg PO QAM 30 Days #30 tablet Ubidecarenone/Vit E Acet [Co Q-10 100 mg Softgel] 1 each PO DAILY Apixaban [Eliquis] 5 mg PO BID Triamterene/Hydrochlorothiazid [Triamterene-Hctz 37.5-25 mg Tb] 1 tab PO DAILY Follow up with: JAMES TORRES DO [Primary Care Provider] -
[2024-02-17] MEDS: ECOTRIN 81 MG PO ONE (13:28)
[2024-02-17] MEDS: Cozaar 50 MG PO ONE (13:28)
[2024-02-17] MEDS: Maxzide-25MG Tablet PO ONE (14:58)
[2024-02-17] MEDS: ELIQUIS 2.5 MG TABLET PO ONE (14:58)
[2024-02-17] MEDS: SYNTHROID 25 MCG PO ONE (14:58)
[2024-02-17 16:07] VITALS: RESP 17; TEMP 97.4
[2024-02-17 17:54] VITALS: BP 165/76
[2024-02-17 17:55] VITALS: PULSE 66; O2SAT 94
[2024-02-17] MEDS: CLONIDINE 0.1 MG TABLET PO ONE (19:09)
[2024-02-17] MEDS ORDERED: NON-FORMULARY ITEM (Apixaban [Eliquis] 5 MG Tablet) PO SCH (22:00)
[2024-02-17] MEDS ORDERED: Cozaar 50 MG PO SCH (22:00)
[2024-02-17] MEDS ORDERED: ELIQUIS 2.5 MG TABLET PO SCH (22:00)
[2024-02-18] MEDS ORDERED: NON-FORMULARY ITEM (Ubidecarenone/Vit E Acet [Co Q-10 100 Mg Softgel] 1 EACH Capsule) PO SCH (10:00)
[2024-02-18] MEDS ORDERED: ECOTRIN 81 MG PO SCH (10:00)
[2024-02-18] MEDS ORDERED: NON-FORMULARY ITEM (Liothyronine Sodium [Liothyronine Sodium] 5 MCG Tablet) PO SCH (10:00)
[2024-02-18] MEDS ORDERED: Maxzide-25MG Tablet PO SCH (10:00)
[2024-02-18] MEDS ORDERED: SYNTHROID 25 MCG PO SCH (10:00)
[2024-02-18] MEDS ORDERED: Cozaar 50 MG PO ONE (13:05)
== END 2024-02-17 20:14 | disposition home or self-care (01) ==
LOC: ED 05:29 → MED SURG 10:25
PROVIDERS: ADMIT Internal Medicine; ATTEND Internal Medicine
DX: R07.9 Chest pain, unspecified (principal); I10 Essential (primary) hypertension; E03.9 Hypothyroidism, unspecified; Z86.73 Personal history of transient ischemic attack (TIA), and cerebral infarction without residual deficits; I48.91 Unspecified atrial fibrillation; Z79.01 Long term (current) use of anticoagulants; Z79.899 Other long term (current) drug therapy
CPT/HCPCS: 36000; 36415; 71045; 80053; 83880; 84443; 84484; 85025; 85379; 93005; 93041; 93268; 96360; 99285; A9270-GY; G0378